=== PATIENT | female | born 1950 | race Caucasian/White ===

== ENCOUNTER → 2017-10-08 | Outpatient (CLI) | payer MEDICARE, BC ==
[~2017-10-08] MED LIST: ALLO300 PO; Aspir 8181 MG PO; CALCAVITD PO; CEPH500 PO; CRANBERRY PLUS1 EAC1 PO; DIGESTIVE PROB1 EACH PO; Daily Multiple1 EACH; FLAX PO; FLUSAL2505 INH; FURO20 PO; GABA800 PO; HYDACE10B PO; IRON236 MG PO; LEVLIO2; MAGNESIUM400 MG PO; OMEG1CAP30; OMEGA 3-6-9 11200 MG; PANT40 PO; POTA10T PO; Percocet 5-3251 EACH PO; Pyridium100 MG PO; Synthroid50 MCG PO; TIZANIDINE HCL4 MG PO; VITAMIN D32000 UNIT PO; ZESTRIL40 MG PO
== END | disposition home or self-care (01) ==
LOC: LAB EV 17:06
DX: N39.0 Urinary tract infection, site not specified (principal)
CPT/HCPCS: 87077; 87086; 87186

== ENCOUNTER → 2017-12-12 | Outpatient (CLI) | payer MEDICARE, BC ==
[2017-12-12 17:17] LABS: Percent Saturation 26.2 % (15.0-50.0)
== END | disposition home or self-care (01) ==
LOC: LAB 11:35 → LAB SHORT 11:35
PROVIDERS: Internal Medicine Hematology & Oncology
DX: D50.9 Iron deficiency anemia, unspecified (principal)
CPT/HCPCS: 82728; 83540; 83550

== ENCOUNTER → 2017-12-17 | Outpatient (CLI) | payer MEDICARE, BC | LOC: LAB SHORT 13:14 → LAB EV 13:14 | DX: N39.0 Urinary tract infection, site not specified (principal) | CPT/HCPCS: 87077; 87086; 87186 ==

== ENCOUNTER → 2018-02-17 | Outpatient (CLI) | payer MEDICARE, BC ==
[2018-02-17 19:22] LABS: Albumin, Blood 4.1 g/dL (3.4-5.0); Albumin/Globulin Ratio 1.5 (0.8-1.8); Bilirubin, Total 0.6 mg/dL (0.1-1.0); Bun/Creatinine Ratio 27.2 (12.0-20.0); Calcium, Blood 9.5 mg/dL (8.5-10.1); Creatinine, Blood 1.03 mg/dL (0.40-1.00); Globulin, Blood 2.7 g/dL (2.2-4.0); Percent Saturation 18.6 % (15.0-50.0); Potassium, Blood 4.7 mmol/L (3.5-5.5); Total Protein, Blood 6.8 g/dL (6.4-8.2)
== END | disposition home or self-care (01) ==
LOC: LAB 16:38 → LAB SHORT 16:38
PROVIDERS: Internal Medicine Hematology & Oncology
DX: D50.9 Iron deficiency anemia, unspecified (principal); G62.9 Polyneuropathy, unspecified; D51.9 Vitamin B12 deficiency anemia, unspecified
CPT/HCPCS: 80053; 82607; 82728; 82746; 83540; 83550

== ENCOUNTER → 2018-12-09 | Outpatient (CLI) | payer MEDICARE, BC | END | disposition home or self-care (01) | LOC: LAB EV 10:07 → LAB SHORT 10:07 | DX: N39.0 Urinary tract infection, site not specified (principal) | CPT/HCPCS: 87077; 87086; 87186 ==

== ENCOUNTER → 2019-01-18 | Outpatient (CLI) | payer MEDICARE, BC ==
[~2019-01-18] MED LIST changes: +ACET325 PO; +ALBU2.5V5 INH; -CALCAVITD PO; +CALCIUM 600 +1 EA11 PO; -Daily Multiple1 EACH; +Daily Multiple1 EACH PO; +ERTAPENEM1 GM IV; +FEMRING VG; +FURO40 PO; +Flonase 0.05% N16 GM; -HYDACE10B PO; +LORA1 SL; +Norco 10-325 T1 EACH PO; +PREG100 PO; +SPIRIVA RESPIMAT4 GM INH; -TIZANIDINE HCL4 MG PO; +WIXELA 500-501 EACH INH; +Zanaflex4 MG PO
== END | disposition home or self-care (01) ==
LOC: LAB SHORT 12:52 → LAB 12:52
DX: R30.0 Dysuria (principal)
CPT/HCPCS: 87077; 87086; 87186

== ENCOUNTER → 2019-03-01 | Outpatient (CLI) | payer MEDICARE, BC | END | disposition home or self-care (01) | LOC: LAB SHORT 13:56 → LAB 13:56 | DX: R30.0 Dysuria (principal) | CPT/HCPCS: 36415; 87086 ==

== ENCOUNTER 2019-04-01 15:53 | Emergency (ER) | payer MEDICARE, BC ==
[~2019-04-01] VITALS: Ht 177.8 cm; Wt 131.5 kg
[~2019-04-01 15:53] MED LIST changes: -ACET325 PO; -ALBU2.5V5 INH; -ERTAPENEM1 GM IV; -FEMRING VG; -FURO40 PO; -Flonase 0.05% N16 GM; -LORA1 SL; -PREG100 PO; -SPIRIVA RESPIMAT4 GM INH; -WIXELA 500-501 EACH INH
[2019-04-01] MEDS ORDERED: FEMRING VG (16:07)
[2019-04-01] MEDS ORDERED: PREG100 PO (16:08)
[2019-04-01] MEDS ORDERED: FURO40 PO (16:08)
[2019-04-01 16:15] LABS: BASOPHILS ABSOLUTE AUTO 0.04 K/mm3 (0.00-0.23); BASOPHILS PERCENT AUTO 0 % (0-2); EOSINOPHILS ABSOLUTE AUTO 0.13 K/mm3 (0.00-0.68); EOSINOPHILS PERCENT AUTO 1 % (0-6); Hematocrit 39.2 % (33.0-51.0); Hemoglobin 12.7 g/dL (11.5-16.0); IMMATURE GRAN ABSOLUTE AUTO 0.05 K/mm3 (0.00-0.10); IMMATURE GRAN PERCENT AUTO 1 % (0-1); LYMPHOCYTES PERCENT AUTO 16 % (21-46); MONOCYTES PERCENT AUTO 7 % (4-13); Mean Corpuscular HGB 31.8 pg (26.0-34.0); Mean Corpuscular HGB Conc 32.4 g/dL (31.5-36.5); Mean Corpuscular Volume 98 fL (80-100); Mean Platelet Volume 9.3 fL (9.1-12.4); NEUTROPHILS ABSOLUTE AUTO 7.73 K/mm3 (1.96-9.15); NEUTROPHILS PERCENT AUTO 75 % (41-73); Platelet Count 244 K/mm3 (150-400); RDW Coefficient Variation 14.2 % (11.7-14.2); RDW Standard Deviation 51.5 fL (35.1-46.3); Red Blood Cell Count 3.99 M/mm3 (3.80-5.20); White Blood Cell Count 10.35 K/mm3 (4.00-11.30)
[2019-04-01 16:36] LABS: Alanine Aminotransfer (ALT/SGP 39 U/L (12-78); Albumin, Blood 3.9 g/dL (3.4-5.0); Alk Phos 67 U/L (50-136); Anion Gap 6 mmol/L (6-16); Aspartate Aminotrans (AST/SGOT 30 U/L (12-37); Bilirubin, Total 0.6 mg/dL (0.1-1.0); Blood Urea Nitrogen 28 mg/dL (8-24); Bun/Creatinine Ratio 26.2 (12.0-20.0); CO2, Blood 26 mmol/L (21-32); Calcium, Blood 9.4 mg/dL (8.5-10.1); Chloride, Blood 102 mmol/L (98-108); Creatinine, Blood 1.07 mg/dL (0.40-1.00); Glomerular Filtration Rate 54 (60-); Glucose, Blood 99 mg/dL (70-99); Potassium, Blood 4.3 mmol/L (3.5-5.5); Sodium, Blood 134 mmol/L (136-145); Total Protein, Blood 7.9 g/dL (6.4-8.2); Troponin I <0.015 ng/mL (0.000-0.040)
[2019-04-01] MEDS ORDERED: LORA1 SL (20:27)
[2019-04-21] MEDS ORDERED: WIXELA 500-501 EACH INH (20:26)
[2019-04-21] MEDS ORDERED: SPIRIVA RESPIMAT4 GM INH (20:29)
[2019-04-21] MEDS ORDERED: Flonase 0.05% N16 GM (20:30)
[2019-04-23] MEDS ORDERED: ACET325 PO (14:19)
[2019-04-23] MEDS ORDERED: ALBU2.5V5 INH (14:21)
[2019-04-23] MEDS ORDERED: ERTAPENEM1 GM IV (14:24)
== END 2019-04-01 20:50 | disposition home or self-care (01) ==
LOC: ER 15:53
PROVIDERS: Physician Assistant
DX: R07.2 Precordial pain (principal); J40 Bronchitis, not specified as acute or chronic; K21.9 Gastro-esophageal reflux disease without esophagitis; Z88.2 Allergy status to sulfonamides; Z79.899 Other long term (current) drug therapy; Z87.891 Personal history of nicotine dependence
CPT/HCPCS: 36415; 71046; 80053; 83690; 83880; 84484; 85025; 93005; 93010; 94640; 99285-25

== ENCOUNTER 2019-04-21 14:33 | Inpatient (IN) | payer MEDICARE, BC ==
[~2019-04-21] VITALS: Ht 177.8 cm; Wt 132.2 kg
[~2019-04-21 14:33] MED LIST changes: +FEMRING VG; +FURO40 PO; +LORA1 SL; +PREG100 PO
[2019-04-21 16:17] LABS: Source, Urine Clean Catch
[2019-04-21 16:27] LABS: Bilirubin, Urine Neg (Neg); Blood, Urine 1+ (Neg); Glucose Qualitative, Urine Neg (Neg); Ketones, Urine 1+ (Neg); Leukocyte Esterase, Urine 3+ (Neg); Nitrite, Urine Pos (Neg); Protein, Urine 2+ (Neg); Specific Gravity, Urine 1.015 (1.003-1.022); Urobilinogen, Urine NORM (Normal)
[2019-04-21 16:28] LABS: Appearance, Urine Hazy (Clear); Color, Urine Yellow (P-Yellow)
[2019-04-21 16:40] LABS: Red Blood Cells, Urine Rare /hpf (0-2); Squamous Epithelial Cells Many /hpf (Few); White Blood Cells, Urine 25-50 /hpf (0-5)
[2019-04-21 16:41] LABS: Bacteria Many /hpf
[2019-04-21] MEDS ORDERED: WIXELA 500-501 EACH INH ×2 (20:26)
[2019-04-21] MEDS ORDERED: SPIRIVA RESPIMAT4 GM INH ×2 (20:29)
[2019-04-21] MEDS ORDERED: Flonase 0.05% N16 GM ×2 (20:30)
--- NOTE | 2019-04-22 04:46 | NUR ---
SHIFT SUMMARY- PT. ARRIVED FROM ED VIA STRETCHER INTO ROOM. A&OX3, INDEPENDENT IN ROOM. C/O CHRONIC BACK PAIN. NOTIFIED PHYSICIAN, RECEIVED 1X ORDER FOR PAIN MED. RESTED WELL T/O THE NIGHT. NO APPARENT DISTRESS NOTED. IV INFUSING. CALL LIGHT WITHIN REACH AND SIDE RAILS UP X2. WILL CONT TO MONITOR.
--- NOTE | 2019-04-22 17:36 | NUR ---
SHIFT SUMMARY NO ACUTE CONCERNS. PATIENT IS ALERT AND ORIENTED INDEPENDENT IN THE ROOM. PATIENT PLANS ON GOING HOME TOMORROW AND THE DOCTOR IS AWARE. CURRENTLY THEY ARE AWAITING RESULTS OF CULTURES FROM URINE AND SPUTUM.
--- NOTE | 2019-04-23 05:06 | NUR ---
SHIFT SUMMARY- NO ACUTE EVENTS OVERNIGHT. PT. RESTED COMFORTABLY T/O THE SHIFT, NO APPARENT DISTRESS NOTED. PT. ON ORAL ABX'S. ORDER FOR NO IV ACCESS OBTAINED. PT. ANTICIPATING D/C TODAY. CALL LIGHT WITHIN REACH AND SIDE RAILS UP X2. WILL CONT TO MONITOR.
[2019-04-23 05:18] LABS: Anion Gap 2 mmol/L (6-16); Blood Urea Nitrogen 16 mg/dL (8-24); Bun/Creatinine Ratio 16.6 (12.0-20.0); CO2, Blood 29 mmol/L (21-32); Calcium, Blood 9.1 mg/dL (8.5-10.1); Chloride, Blood 109 mmol/L (98-108); Creatinine, Blood 0.96 mg/dL (0.40-1.00); Glomerular Filtration Rate >60 (60-); Glucose, Blood 107 mg/dL (70-99); Potassium, Blood 4.4 mmol/L (3.5-5.5); Sodium, Blood 140 mmol/L (136-145)
--- NOTE | 2019-04-23 08:30 | NUR ---
PT PLEASANT COOP A.O. STATES THINKING GOING HOME TODAY. STATES SOME PAIN IN LEGS. MED PER EMAR. H/R REG, YULIET NOTED. NO TELE. PT REFUSED LISINOPRIL. STATES WOULD HOLD FOR BP <120. LUNGS CLEAR, RESP EASY, UNLABORED. ON R.A, BT HYPOACTIVE. LAST BM TUESDAY. DINESH JUÁREZ REQUESTED AND GIVEN. SHE STATES WILL TELL DR TO START [place] AGAIN WHEN IN. VOIDS PER BATHROOM. INDEPENDANT ON ROOM. BED IN LOW POSITION, CALL LITE IN REACH, CALLS APPROP
[2019-04-23] MEDS ORDERED: ACET325 PO ×2 (14:19)
[2019-04-23] MEDS ORDERED: ALBU2.5V5 INH ×2 (14:21)
[2019-04-23] MEDS ORDERED: ERTAPENEM1 GM IV ×2 (14:24)
--- NOTE | 2019-04-23 14:48 | NUR ---
PATIENT GIVEN VERBAL AND WRITTEN DISCHARGE INSTRUCTIONS. MIDLINE IN PLACE. ALL QUESTIONS ANSWERED. PATIENT TO RETURN TO THE [facility] TOMORROW FOR FIRST D/C INFUSION. PATIENT FINISHING UP TO D/C HOME WITH AT THIS TIME.
--- NOTE | 2019-04-23 15:20 | NUR ---
PT WHEELED OUT DOOR BY AIDE AT [id number]
== END 2019-04-23 15:12 | disposition home or self-care (01) | DRG 872 ==
LOC: ER 14:33 → MEDS 18:49 → ER 18:49 → MEDS 20:56
PROVIDERS: Internal Medicine; Physician Assistant; ADMIT Internal Medicine
DX: A41.89 Other specified sepsis (principal); N17.9 Acute kidney failure, unspecified; N39.0 Urinary tract infection, site not specified; Z68.41 Body mass index [BMI] 40.0-44.9, adult; J44.1 Chronic obstructive pulmonary disease with (acute) exacerbation; R65.20 Severe sepsis without septic shock; I12.9 Hypertensive chronic kidney disease with stage 1 through stage 4 chronic kidney disease, or unspecified chronic kidney disease; N18.3 Chronic kidney disease, stage 3 (moderate); E66.01 Morbid (severe) obesity due to excess calories; Z88.2 Allergy status to sulfonamides; Z87.891 Personal history of nicotine dependence
CPT/HCPCS: 36415; 71046; 80048; 80053; 81001; 82550; 83605; 84484; 85025; 87070; 87077; 87086; 87186; 87205; 93005; 93010; 94640; 94760; 96360; 96361; 96372; 96374; 99285-25; A9270; G0378; J0696; J1650; J2185; J2405; J7030; J7120

== ENCOUNTER 2019-04-24 00:03 | Day surgery (SDC) | payer MEDICARE, BC ==
[~2019-04-24 00:03] MED LIST changes: +ACET325 PO; +ALBU2.5V5 INH; +ERTAPENEM1 GM IV; +Flonase 0.05% N16 GM; +SPIRIVA RESPIMAT4 GM INH; +WIXELA 500-501 EACH INH
== END 2019-04-24 09:32 | disposition home or self-care (01) ==
LOC: ATC 00:03
DX: N39.0 Urinary tract infection, site not specified (principal); J44.9 Chronic obstructive pulmonary disease, unspecified; I10 Essential (primary) hypertension; Z16.12 Extended spectrum beta lactamase (ESBL) resistance; Z87.891 Personal history of nicotine dependence; Z88.2 Allergy status to sulfonamides; Z79.899 Other long term (current) drug therapy
CPT/HCPCS: 96365; J1335

== ENCOUNTER 2019-04-25 00:03 | Day surgery (SDC) | payer MEDICARE, BC | END 2019-04-25 10:00 | disposition home or self-care (01) | LOC: ATC 00:03 | DX: N39.0 Urinary tract infection, site not specified (principal); J44.9 Chronic obstructive pulmonary disease, unspecified; I10 Essential (primary) hypertension; Z87.891 Personal history of nicotine dependence; Z16.12 Extended spectrum beta lactamase (ESBL) resistance; Z88.2 Allergy status to sulfonamides; Z79.899 Other long term (current) drug therapy | CPT/HCPCS: 96365; J1335 ==

== ENCOUNTER 2019-04-26 00:03 | Day surgery (SDC) | payer MEDICARE, BC | END 2019-04-26 10:13 | disposition home or self-care (01) | LOC: ATC 00:03 | DX: N39.0 Urinary tract infection, site not specified (principal); Z16.12 Extended spectrum beta lactamase (ESBL) resistance; I10 Essential (primary) hypertension; J44.9 Chronic obstructive pulmonary disease, unspecified; Z88.2 Allergy status to sulfonamides; Z87.891 Personal history of nicotine dependence; Z79.899 Other long term (current) drug therapy | CPT/HCPCS: 96365; J1335 ==

== ENCOUNTER 2019-04-27 01:08 | Day surgery (SDC) | payer MEDICARE, BC | END 2019-04-27 11:28 | disposition home or self-care (01) | LOC: ATC 01:08 | DX: N39.0 Urinary tract infection, site not specified (principal); Z16.12 Extended spectrum beta lactamase (ESBL) resistance; I10 Essential (primary) hypertension; J44.9 Chronic obstructive pulmonary disease, unspecified; Z88.2 Allergy status to sulfonamides; Z79.899 Other long term (current) drug therapy; Z87.891 Personal history of nicotine dependence | CPT/HCPCS: 96365; J1335 ==

== ENCOUNTER 2019-04-28 09:22 | Day surgery (SDC) | payer MEDICARE, BC | END 2019-04-28 09:58 | disposition home or self-care (01) | LOC: ATC 09:22 | DX: N39.0 Urinary tract infection, site not specified (principal); Z16.12 Extended spectrum beta lactamase (ESBL) resistance; I10 Essential (primary) hypertension; J44.9 Chronic obstructive pulmonary disease, unspecified; Z88.2 Allergy status to sulfonamides; Z79.51 Long term (current) use of inhaled steroids; Z79.899 Other long term (current) drug therapy | CPT/HCPCS: 96365; J1335 ==

== ENCOUNTER 2019-04-29 00:29 | Day surgery (SDC) | payer MEDICARE, BC | END 2019-04-29 09:57 | disposition home or self-care (01) | LOC: ATC 00:29 | DX: N39.0 Urinary tract infection, site not specified (principal); I10 Essential (primary) hypertension; J44.1 Chronic obstructive pulmonary disease with (acute) exacerbation; Z16.12 Extended spectrum beta lactamase (ESBL) resistance; Z87.891 Personal history of nicotine dependence; Z79.899 Other long term (current) drug therapy | CPT/HCPCS: 96365; J1335 ==

== ENCOUNTER 2019-04-30 00:12 | Day surgery (SDC) | payer MEDICARE, BC | END 2019-04-30 10:10 | disposition home or self-care (01) | LOC: ATC 00:12 | DX: N39.0 Urinary tract infection, site not specified (principal); I10 Essential (primary) hypertension; J44.9 Chronic obstructive pulmonary disease, unspecified; Z16.12 Extended spectrum beta lactamase (ESBL) resistance; Z88.2 Allergy status to sulfonamides; Z79.899 Other long term (current) drug therapy; Z87.891 Personal history of nicotine dependence | CPT/HCPCS: 96365; J1335 ==

== ENCOUNTER → 2019-05-01 | Outpatient (CLI) | payer MEDICARE, BC | END | disposition home or self-care (01) | LOC: LAB SHORT 15:38 → LAB 15:38 | DX: N94.89 Other specified conditions associated with female genital organs and menstrual cycle (principal); R19.09 Other intra-abdominal and pelvic swelling, mass and lump | CPT/HCPCS: 86304 ==

== ENCOUNTER → 2019-05-08 | Outpatient (CLI) | payer MEDICARE, BC ==
[2019-05-08 14:19] LABS: Source, Urine Clean Catch
[2019-05-08 18:53] LABS: Bilirubin, Urine Neg (Neg); Blood, Urine 1+ (Neg); Glucose Qualitative, Urine Neg (Neg); Ketones, Urine Neg (Neg); Leukocyte Esterase, Urine 2+ (Neg); Nitrite, Urine Neg (Neg); Protein, Urine Neg (Neg); Urobilinogen, Urine NORM (Normal)
[2019-05-08 19:09] LABS: Appearance, Urine Clear (Clear); Color, Urine Yellow (P-Yellow)
[2019-05-08 19:10] LABS: Bacteria Mod /hpf; Squamous Epithelial Cells Few /hpf (Few); White Blood Cells, Urine TNTC /hpf (0-5)
== END | disposition home or self-care (01) ==
LOC: LAB 14:18 → LAB SHORT 14:18
PROVIDERS: Nurse Practitioner Family
DX: N39.0 Urinary tract infection, site not specified (principal)
CPT/HCPCS: 81001; 87077; 87086; 87186

== ENCOUNTER → 2019-06-04 | Outpatient (CLI) | payer MEDICARE, BC ==
[~2019-06-04] MED LIST changes: +D MANNOS PO; +Estrace Vagin42.5 GM VAG; +PROBIOTIC1 EAC1 PO; +VITAMIN B122500 MCG PO
[2019-06-04 19:54] LABS: Appearance, Urine Clear (Clear); Blood, Urine 1+ (Neg); Glucose Qualitative, Urine Neg (Neg); Ketones, Urine Neg (Neg); Leukocyte Esterase, Urine 3+ (Neg); Nitrite, Urine Pos (Neg); Protein, Urine 1+ (Neg); Urobilinogen, Urine 2+ (Normal)
[2019-06-04 20:06] LABS: Bilirubin, Urine 2+ (Neg); Color, Urine Orange (P-Yellow)
[2019-06-04 20:07] LABS: Bacteria Many /hpf; Red Blood Cells, Urine 0-2 /hpf (0-2); Squamous Epithelial Cells Few /hpf (Few); White Blood Cells, Urine 25-50 /hpf (0-5)
== END ==
LOC: LAB 17:00 → LAB SHORT 17:00 → LAB FUT 06-04 17:15
PROVIDERS: Physician Assistant
DX: N39.0 Urinary tract infection, site not specified (principal); N95.2 Postmenopausal atrophic vaginitis; Z87.440 Personal history of urinary (tract) infections
CPT/HCPCS: 81001

== ENCOUNTER 2019-06-07 08:28 | Inpatient (IN) | payer MEDICARE, BC ==
[~2019-06-07] VITALS: Ht 172.7 cm; Wt 135.0 kg
--- NOTE | 2019-06-07 09:40 | NUR ---
Ambulatory in Day Surgery History, Chart, Medications and Allergies reviewed before start of procedure.Patient confirms NPO status and agrees with scheduled surgery. Lungs clear T/O to Auscultation. Patient reports completing Chlorhexadine shower X2 prior to admission to hospital.Surgical site prepped with 2% Chlorhexidine cloth wipe. Patient States Post-Procedure ride home has been arranged.
--- NOTE | 2019-06-07 11:30 | NUR ---
06/07/19 1130 Jose Carrion CONVERTED TO OPEN APPROACH AT 1052.
[2019-06-07 18:19] LABS: Source, Urine Catheter
[2019-06-07 18:34] LABS: Blood, Urine 5+ (Neg); Glucose Qualitative, Urine Neg (Neg); Ketones, Urine Neg (Neg); Leukocyte Esterase, Urine 3+ (Neg); Nitrite, Urine Pos (Neg); Protein, Urine 3+ (Neg); Urobilinogen, Urine 2+ (Normal)
[2019-06-07 19:04] LABS: Appearance, Urine Cloudy (Clear); Bilirubin, Urine 2+ (Neg); Color, Urine Orange (P-Yellow)
[2019-06-07 19:06] LABS: Bacteria Many /hpf; Squamous Epithelial Cells Few /hpf (Few); White Blood Cells, Urine TNTC /hpf (0-5)
--- NOTE | 2019-06-07 20:21 | NUR ---
POST OP: REPORT RECIEVED FROM ESPERANZA GLASS DESIGNER AT 1430. PT TO UNIT AT 1440. UPON ASSESSMENT VSS, A/O. REPORTS SOME PAIN, ENCOURAGED TO USE IT HELP DESK ASSOCIATE BUTTON. SURGICAL SITES WNL, SLIGHT VAGINAL BLEED NOTED. PT ABLE TO TURN IN BED. DANIELLE IS DRAINING. PT DENIED NEED FOR FLU VAC. FAMILY AT BEDSIDE. WILL CTM
--- NOTE | 2019-06-07 20:24 | NUR ---
SUMMARY: NO ACUTE CHANGE SINCE ADMIT. VSS. PT REPORTS COMMUNITY AFFAIRS DIRECTOR MANAGING PAIN WELL, TORADOL ALSO GIVEN. SLIGHT WHEEZE NOTED UPON LUNG ASCULTATION, THIS RN ORDERED BD PROTOCOL, AND RT SAW PT TONIGHT. UA COLLECTED, NO CONCERNS AT THIS TIME. REPORT GIVEN TO JOSE RN'S.
--- NOTE | 2019-06-08 04:14 | NUR ---
SHIFT SUMMARY PT A&OX4 WITH VSS T/O SHIFT. ABD DRESSING 2X APPEARS C/D/I WITH NO DRAINAGE NOTED. ABD APPEARS DISTENDED; DISCUSSED IMPORTANCE AMBULATION. DENIES PASSING FLATUS OR HAVING ANY N/V. CURRENTLY TOLERATING CL DIET, PLAN TO ADVANCE TOLERATED. PAIN MANAGED WITH FREQUENT REPOSITIONING AND PER EMAR.
[2019-06-08 05:29] LABS: BASOPHILS ABSOLUTE AUTO 0.03 K/mm3 (0.00-0.23); BASOPHILS PERCENT AUTO 0 % (0-2); EOSINOPHILS PERCENT AUTO 1 % (0-6); Hematocrit 36.9 % (33.0-51.0); Hemoglobin 11.3 g/dL (11.5-16.0); IMMATURE GRAN ABSOLUTE AUTO 0.03 K/mm3 (0.00-0.10); IMMATURE GRAN PERCENT AUTO 0 % (0-1); LYMPHOCYTES ABSOLUTE AUTO 1.47 K/mm3 (0.84-5.20); LYMPHOCYTES PERCENT AUTO 15 % (21-46); MONOCYTES PERCENT AUTO 8 % (4-13); Mean Corpuscular HGB 31.5 pg (26.0-34.0); Mean Corpuscular HGB Conc 30.6 g/dL (31.5-36.5); Mean Corpuscular Volume 103 fL (80-100); Mean Platelet Volume 10.3 fL (9.1-12.4); NEUTROPHILS ABSOLUTE AUTO 7.12 K/mm3 (1.96-9.15); NEUTROPHILS PERCENT AUTO 75 % (41-73); Platelet Count 271 K/mm3 (150-400); RDW Standard Deviation 56.5 fL (35.1-46.3); Red Blood Cell Count 3.59 M/mm3 (3.80-5.20); White Blood Cell Count 9.55 K/mm3 (4.00-11.30)
--- NOTE | 2019-06-08 18:05 | NUR ---
SUMMARY PAIN WELL CONTROLLED WITH PO PAIN MEDS. PATIENT REPORTS "GAS PAINS" PATIENT OOB TO CHAIR AND AMBULATING IN BELL. PATIENT STATES SHE IS NOT PASSING FLATUS. UP TO BATHROOM TO VOID CLEAR DARK YELLOW URINE. ABD DRESSINGS DRY AND INTACT
--- NOTE | 2019-06-09 06:09 | NUR ---
SHIFT SUMMARY: IKE IS POD2 BILATERAL SALPINGOOPHORECTOMY CONVERTED TO OPEN PROCEDURE. DRESSINGS WITH SCANT DRAINAGE ON MIDDLE DRESSING, OTHERS C,D&I. IV PATENT. TOLERATING PO INTAKE WELL, NO N/V THIS SHIFT. SHE REPORTS GOOD PAIN CONTROL WITH THE USE OF PERCOCET AND TORADOL. SHE IS INDEPDENT IN THE ROOM. SHE DENIES ANY DIFFICULTIES WITH URINATION. ENCOURAGED TO EAT PRIOR TO TAKING NARCOTIC PAIN MEDICATION. ABLE TO MAKE HER NEEDS KNOWN. VSS.
[2019-06-09] MEDS ORDERED: IBUP800 PO (13:55)
--- NOTE | 2019-06-09 14:48 | NUR ---
DISCHARGE SUMMARY PT A&OX4, VSS, LEFT FLOOR VIA WC WITH MANAGER OF COMPLIANCE, TO GO HOME WITH AND DAUGHTER, WITH ALL PERSONAL POSSESSIONS INCLUDING DISCHARGE PACKET. DC INSTRUCTIONS PROVIDED. PT REP UNDERSTANDING THOSE INSTRUCTIONS INCLUDING LEAVE STERISTRIPS IN PLACE - WILL COME OFF ON THEIR OWN IN 7-10 DAYS, FU WITH DR IN 2 WKS, OK TO SHOWER, NO TUB BATHS/JACUZZI, PELVIC REST, NO LIFTING > 10 LBS. IV DC'D.
== END 2019-06-09 14:19 | disposition home or self-care (01) | DRG 743 ==
LOC: ORSCMMR 08:28 → ORD 09:30 → SURS 12:08 → ORSCMMR 12:08 → SURS 14:22
PROVIDERS: ADMIT Obstetrics & Gynecology
PROC: 0DN80ZZ Release Small Intestine, Open Approach (ICD-10-PCS; 2019-06-07)
PROC: 0UT20ZZ Resection of Bilateral Ovaries, Open Approach (ICD-10-PCS; principal; 2019-06-07 09:30)
PROC: 0UT70ZZ Resection of Bilateral Fallopian Tubes, Open Approach (ICD-10-PCS; 2019-06-07 09:30)
PROC: 0DNU0ZZ Release Omentum, Open Approach (ICD-10-PCS; 2019-06-07 09:30)
DX: N83.8 Other noninflammatory disorders of ovary, fallopian tube and broad ligament (principal); I10 Essential (primary) hypertension; J44.9 Chronic obstructive pulmonary disease, unspecified; M10.9 Gout, unspecified; Z87.891 Personal history of nicotine dependence
CPT/HCPCS: 36415; 81001; 85025; 87077; 87081; 87086; 87186; 88305; 94640; 94760; J0330; J1650; J1885; J2250; J2405; J2704; J2765; J3010; J7030; J7120

== ENCOUNTER → 2019-07-06 | Outpatient (CLI) | payer MEDICARE, BC ==
[~2019-07-06] MED LIST changes: +AMLO5 PO; +IBUP800 PO; +LOSARTAN POTAS100 MG PO; +PROAIR RESPICL90 MCG INH
[2019-07-06 10:52] LABS: Source, Urine Clean Catch
[2019-07-06 13:28] LABS: Bilirubin, Urine Neg (Neg); Blood, Urine Neg (Neg); Glucose Qualitative, Urine Neg (Neg); Ketones, Urine Neg (Neg); Leukocyte Esterase, Urine 2+ (Neg); Nitrite, Urine Pos (Neg); Protein, Urine 1+ (Neg); Urobilinogen, Urine NORM (Normal)
[2019-07-06 13:53] LABS: Appearance, Urine Clear (Clear); Color, Urine Yellow (P-Yellow)
[2019-07-06 14:46] LABS: Bacteria Many /hpf; Red Blood Cells, Urine 0-2 /hpf (0-2); Squamous Epithelial Cells Mod /hpf (Few)
== END | disposition home or self-care (01) ==
LOC: LAB SHORT 10:51 → LAB 10:51
PROVIDERS: Urology
DX: N39.0 Urinary tract infection, site not specified (principal)
CPT/HCPCS: 81001; 87077; 87086; 87186

== ENCOUNTER 2019-07-30 10:36 | Day surgery (SDC) | payer MEDICARE, BC ==
[~2019-07-30] VITALS: Ht 177.8 cm; Wt 138.0 kg
[~2019-07-30 10:36] MED LIST changes: -AMLO5 PO; -LOSARTAN POTAS100 MG PO; -PROAIR RESPICL90 MCG INH
[2019-07-30] MEDS ORDERED: AMLO5 PO (11:41)
[2019-07-30] MEDS ORDERED: LOSARTAN POTAS100 MG PO (11:41)
[2019-07-30] MEDS ORDERED: PROAIR RESPICL90 MCG INH (11:46)
== END 2019-07-30 13:21 | disposition home or self-care (01) ==
LOC: ORSCSDS 10:36
PROVIDERS: Student in an Organized Health Care Education/Training Program
PROC: 0DB48ZX Excision of Esophagogastric Junction, Via Natural or Artificial Opening Endoscopic, Diagnostic (ICD-10-PCS; principal; 2019-07-30 11:45)
PROC: 0DB68ZX Excision of Stomach, Via Natural or Artificial Opening Endoscopic, Diagnostic (ICD-10-PCS; principal; 2019-07-30 11:45)
DX: K21.9 Gastro-esophageal reflux disease without esophagitis (principal); R10.13 Epigastric pain; R13.14 Dysphagia, pharyngoesophageal phase; K44.9 Diaphragmatic hernia without obstruction or gangrene; I10 Essential (primary) hypertension; J44.9 Chronic obstructive pulmonary disease, unspecified; Z87.891 Personal history of nicotine dependence; E66.01 Morbid (severe) obesity due to excess calories; Z68.41 Body mass index [BMI] 40.0-44.9, adult; Z79.899 Other long term (current) drug therapy
CPT/HCPCS: 88305; J2704; J7120

== ENCOUNTER → 2019-08-02 | Outpatient (CLI) | payer MEDICARE, BC ==
[~2019-08-02] MED LIST changes: +AMLO5 PO; +LOSARTAN POTAS100 MG PO; +PROAIR RESPICL90 MCG INH
[2019-08-02 14:07] LABS: Source, Urine Clean Catch
[2019-08-02 18:41] LABS: Bilirubin, Urine Neg (Neg); Blood, Urine Neg (Neg); Glucose Qualitative, Urine Neg (Neg); Ketones, Urine Neg (Neg); Leukocyte Esterase, Urine Neg (Neg); Nitrite, Urine Neg (Neg); Protein, Urine Neg (Neg); Specific Gravity, Urine 1.005 (1.003-1.022); Urobilinogen, Urine NORM (Normal)
[2019-08-02 18:59] LABS: Appearance, Urine Clear (Clear); Color, Urine Pale Yellow (P-Yellow)
== END | disposition home or self-care (01) ==
LOC: LAB SHORT 13:44 → LAB 13:44
PROVIDERS: Physician Assistant
DX: N39.0 Urinary tract infection, site not specified (principal)
CPT/HCPCS: 81003; 87077; 87086; 87186

== ENCOUNTER → 2019-09-28 | Outpatient (CLI) | payer MEDICARE, BC ==
[2019-09-28 16:11] LABS: Source, Urine Clean Catch
[2019-09-28 17:16] LABS: Bilirubin, Urine Neg (Neg); Blood, Urine Neg (Neg); Glucose Qualitative, Urine Neg (Neg); Ketones, Urine Neg (Neg); Leukocyte Esterase, Urine 1+ (Neg); Nitrite, Urine Neg (Neg); Protein, Urine Neg (Neg); Specific Gravity, Urine 1.005 (1.003-1.022); Urobilinogen, Urine NORM (Normal)
[2019-09-28 17:24] LABS: Appearance, Urine Clear (Clear); Color, Urine Pale Yellow (P-Yellow)
[2019-09-28 17:25] LABS: Bacteria Rare /hpf; Red Blood Cells, Urine 0-2 /hpf (0-2); Squamous Epithelial Cells Few /hpf (Few)
== END | disposition home or self-care (01) ==
LOC: OLS 16:08 → LAB SHORT 16:08 → EDSTATUS 09-03 15:50 → LAB FUT 09-03 15:50
PROVIDERS: Physician Assistant
DX: N39.0 Urinary tract infection, site not specified (principal)
CPT/HCPCS: 81001; 87086

== ENCOUNTER → 2019-11-26 | Outpatient (CLI) | payer MEDICARE, BC ==
[2019-11-26 15:13] LABS: Source, Urine Clean Catch
[2019-11-26 17:33] LABS: Bilirubin, Urine Neg (Neg); Blood, Urine Neg (Neg); Glucose Qualitative, Urine Neg (Neg); Ketones, Urine Neg (Neg); Leukocyte Esterase, Urine Neg (Neg); Nitrite, Urine Neg (Neg); Protein, Urine Neg (Neg); Specific Gravity, Urine 1.005 (1.003-1.022); Urobilinogen, Urine NORM (Normal)
[2019-11-26 17:37] LABS: Appearance, Urine Clear (Clear); Color, Urine Yellow (P-Yellow)
== END | disposition home or self-care (01) ==
LOC: LAB SHORT 15:12 → LAB 15:12
PROVIDERS: Physician Assistant
DX: N39.0 Urinary tract infection, site not specified (principal)
CPT/HCPCS: 81003

== ENCOUNTER → 2019-12-19 | Outpatient (CLI) | payer MEDICARE, BC ==
[2019-12-19 15:29] LABS: Source, Urine Clean Catch
[2019-12-19 18:27] LABS: Bilirubin, Urine Neg (Neg); Blood, Urine Neg (Neg); Glucose Qualitative, Urine Neg (Neg); Ketones, Urine Neg (Neg); Leukocyte Esterase, Urine 2+ (Neg); Nitrite, Urine Neg (Neg); Protein, Urine Neg (Neg); Urobilinogen, Urine NORM (Normal)
[2019-12-19 18:57] LABS: Appearance, Urine Clear (Clear); Color, Urine Yellow (P-Yellow)
[2019-12-19 18:58] LABS: Bacteria Not Seen /hpf; Red Blood Cells, Urine Not Seen /hpf (0-2); Squamous Epithelial Cells Rare /hpf (Few); White Blood Cells, Urine 25-50 /hpf (0-5)
== END | disposition home or self-care (01) ==
LOC: LAB 15:24 → LAB SHORT 15:24
PROVIDERS: Physician Assistant
DX: N39.0 Urinary tract infection, site not specified (principal)
CPT/HCPCS: 81001

== ENCOUNTER 2020-01-03 08:13 | Day surgery (SDC) | payer MEDICARE, BC ==
--- NOTE | 2020-01-03 11:56 | NUR ---
PT VERBALIZED UNDERSTANDING OF WRITTEN AND VERBAL D/C INST. AMB TO BATHROOM /S DIFFICULTY. IV REMOVED. PT TAKEN OUT OF [facility]ENTER VIA W/C.
== END 2020-01-03 23:23 | disposition home or self-care (01) ==
LOC: MHTC 08:13
DX: I35.0 Nonrheumatic aortic (valve) stenosis (principal); J45.909 Unspecified asthma, uncomplicated; I10 Essential (primary) hypertension; E03.9 Hypothyroidism, unspecified; Z79.899 Other long term (current) drug therapy; Z87.891 Personal history of nicotine dependence; Z88.2 Allergy status to sulfonamides; Z88.8 Allergy status to other drugs, medicaments and biological substances
CPT/HCPCS: 93308; 93321; 93325; 99152; C8925; J2250; J3010; J7030

== ENCOUNTER → 2020-01-09 | Outpatient (CLI) | payer MEDICARE, BC | END | disposition home or self-care (01) | LOC: LAB SHORT 09:36 → PLD 09:36 | DX: D22.5 Melanocytic nevi of trunk (principal) | CPT/HCPCS: 88305 ==

== ENCOUNTER → 2020-04-14 | Outpatient (CLI) | payer MEDICARE, BC | END | disposition home or self-care (01) | LOC: LAB 18:00 → LAB SHORT 18:00 | DX: J20.9 Acute bronchitis, unspecified (principal) | CPT/HCPCS: 87070; 87077; 87185; 87205 ==

== ENCOUNTER 2020-05-26 09:48 | Inpatient (IN) | payer MEDICARE, BC, OTHER ==
[~2020-05-26] VITALS: Ht 177.8 cm; Wt 140.8 kg
[2020-05-26 11:34] LABS: BASOPHILS ABSOLUTE AUTO 0.05 K/mm3 (0.00-0.23); BASOPHILS PERCENT AUTO 0 % (0-2); EOSINOPHILS ABSOLUTE AUTO 0.34 K/mm3 (0.00-0.68); EOSINOPHILS PERCENT AUTO 2 % (0-6); Hematocrit 33.2 % (33.0-51.0); Hemoglobin 9.6 g/dL (11.5-16.0); IMMATURE GRAN PERCENT AUTO 1 % (0-1); LYMPHOCYTES PERCENT AUTO 13 % (21-46); MONOCYTES ABSOLUTE AUTO 1.35 K/mm3 (0.16-1.47); MONOCYTES PERCENT AUTO 10 % (4-13); Mean Corpuscular HGB 26.2 pg (26.0-34.0); Mean Corpuscular HGB Conc 28.9 g/dL (31.5-36.5); Mean Corpuscular Volume 91 fL (80-100); Mean Platelet Volume 9.5 fL (9.1-12.4); NEUTROPHILS ABSOLUTE AUTO 10.43 K/mm3 (1.96-9.15); NEUTROPHILS PERCENT AUTO 74 % (41-73); NRBC ABSOLUTE 0.02 K/mm3 (0.00-0.02); NRBC Auto 0.1 /100 WBC (0.0-0.2); Platelet Count 277 K/mm3 (150-400); RDW Coefficient Variation 18.6 % (11.7-14.2); RDW Standard Deviation 61.6 fL (35.1-46.3); Red Blood Cell Count 3.67 M/mm3 (3.80-5.20); White Blood Cell Count 14.17 K/mm3 (4.00-11.30)
[2020-05-26 11:58] LABS: Alanine Aminotransfer (ALT/SGP 36 U/L (12-78); Albumin, Blood 3.3 g/dL (3.4-5.0); Albumin/Globulin Ratio 0.9 (0.8-1.8); Alk Phos 53 U/L (50-136); Anion Gap 6 mmol/L (6-16); Aspartate Aminotrans (AST/SGOT 60 U/L (12-37); Blood Urea Nitrogen 23 mg/dL (8-24); CO2, Blood 28 mmol/L (21-32); Chloride, Blood 106 mmol/L (98-108); Creatinine, Blood 1.44 mg/dL (0.40-1.00); Globulin, Blood 3.8 g/dL (2.2-4.0); Glomerular Filtration Rate 38 (60-); Glucose, Blood 105 mg/dL (70-99); Potassium, Blood 4.9 mmol/L (3.5-5.5); Sodium, Blood 140 mmol/L (136-145); Total Protein, Blood 7.1 g/dL (6.4-8.2); Troponin I <0.015 ng/mL (0.000-0.040)
[2020-05-26] MEDS ORDERED: TORSE20 PO (15:31)
[2020-05-26] MEDS ORDERED: SPIRONOLACTONE25 MG PO (15:31)
[2020-05-26] MEDS ORDERED: ALLO300 PO (15:32)
[2020-05-26] MEDS ORDERED: LYRICA100 MG PO (15:32)
[2020-05-26] MEDS ORDERED: Klor-Con 1010 MEQ PO (15:32)
[2020-05-26] MEDS ORDERED: AMLODIPINE BESYL5 MG PO (15:32)
[2020-05-26] MEDS ORDERED: LOSARTAN POTAS100 M1 PO (15:33)
[2020-05-26] MEDS ORDERED: WIXELA 500-501 EAC1 INH (15:33)
[2020-05-26] MEDS ORDERED: SYNTHROID50 MC1 PO (15:33)
[2020-05-26] MEDS ORDERED: PANTOPRAZOLE SO40 M2 PO (15:34)
[2020-05-26] MEDS ORDERED: SPIRIVA RESPIMAT4 G3 INH (15:34)
--- NOTE | 2020-05-26 18:40 | NUR ---
ARRIVES FROM [facility] ABOUT 1745. C/O SOB X 4 DAYS, HAD APPOINTMENT W/PCP TODAY BUT CAME TO [facility]. COVID 19 NEGATIVE. NORMALLY ON 2-3 LPM OXYGEN IN EVENINGS. HAD FEVER OF 101 AT HOME. LUNGS DIM UPPER LOBES, WHEEZEY LEFT LOWER AND COARSE RT LOWER LOBE. GOT 1 LITER FLUID AND LEVOQUIN IN E.[facility]. EDEMA 3-4 + BLE W/WEEPING RT LOWER LEG. STILL PUTTING IN ORDERS. WILL CHECK FOR FAX FROM PHARM/PCP FOR HOME MED LIST. STEADY GAIT TO BATHROOM. EXTENSSION ADDED TO OXYGEN TUBING TM
[2020-05-26] MEDS ORDERED: Vitamin D2000 UNIT PO (20:58)
--- NOTE | 2020-05-26 21:11 | NUR ---
PT TAKES NORCO 10/325, PO, TID, PRN FOR PAIN AT HOME; PT CURRENTLY HAS NO PAIN MEDS ORDERED; DR GUPTA NOTIFIED WITH ORDERS RECEIVED FOR THIS MEDICATION.
--- NOTE | 2020-05-27 04:46 | NUR ---
SHIFT SUMMARY: 69 Y/O OBESE FEMALE HAD RESTLESS NIGHT AT TIMES ALL SHIFT PATIENT UP AND DOWN TO BATHROOM; PT HAS +3 PITTING EDEMA BILATERAL LOWER EXTREMITIES; CONTACT PRECAUTIONS MAINTAINED FOR ESBL IN URINEP; LUNG SOUNDS ARE DIMINISHED THROUGHOUT WITH OCCASIONAL PRODUCTIVE COUGH SMALL AMOUNT YELLOW PHELGM; C/O CHRONIC BACK PAIN RATED 8/10 WITH NORCO 10/325 MG PO X 1 GIVEN WITH GOOD RELIEF NOTED; BED LOW POSITION WITH CALL LIGHT AT SIDE.
[2020-05-27] MEDS ORDERED: ALPR.5 PO (09:47)
[2020-05-27] MEDS ORDERED: TIZA4 PO (09:50)
[2020-05-27] MEDS ORDERED: WIXELA 500-501 EAC1 INH (09:52)
--- NOTE | 2020-05-27 11:20 | NUR ---
ORDER MED FOR INSOMNIA, SWALLOW EVAL FOR POSSIBLE ASPIRATION AND UA W/CULTURE TO CHECK FOR ESBL.
--- NOTE | 2020-05-27 11:36 | NUR ---
REQUEST COUGH MED FROM --ORDER ROBITUSSIN DM 10 ML Q 4 HOURS PRN
--- NOTE | 2020-05-27 14:38 | NUR ---
PER OK FOR PATIENT TO USE HER OWN BREATHING MED, WIXELA, WHICH OUR PHARMACY DOES NOT HAVE. WILL LET PATIENT KNOW TO BRING IN AND WE CAN HAVE PHARMACY VERIFY.
[2020-05-27 14:43] LABS: Source, Urine Voided
[2020-05-27 14:53] LABS: Appearance, Urine Clear (Clear); Bilirubin, Urine Neg (Neg); Blood, Urine Neg (Neg); Color, Urine Yellow (P-Yellow); Glucose Qualitative, Urine Neg (Neg); Ketones, Urine Neg (Neg); Leukocyte Esterase, Urine Neg (Neg); Nitrite, Urine Neg (Neg); Protein, Urine Neg (Neg); Urobilinogen, Urine NORM (Normal)
--- NOTE | 2020-05-27 16:55 | NUR ---
ALERT. ORIENTED. ONE PERSON STANDBY ASSIST. STEADY GAIT ON OXYGEN. TO BRING IN HOME MED INHALER. PATIENT AWARE MED WILL BE LOCKED OUTSIDE OF ROOM AND WILL ASK FOR IT BACK WHEN DISCHARGED. MEDICATED FOR PAIN WITH GOOD RESULTS. RT LEG STILL WEEPING SLIGHTLY. ABLE TO MAKE NEEDS KNOWN. SPEAKS IN COMPLETE SENTENCES. AWARE HAS SLEEPING AID IF NEEDED. TM
--- NOTE | 2020-05-28 04:52 | NUR ---
SHIFT SUMMARY NO ACUTE CHANGES THIS SHIFT, MEDICATED AT BEDTIME FOR PAIN (4/10 FEET), SLEPT T/O THE NIGHT, TOMAZ ADMIN 1HR BEFORE SOLUMED PER PT'S REQ- THIS WORKED WELL AND PT WAS ABLE TO SLEEP T/O THE NIGHT, SLEEPING AT THIS TIME, CALL LIGHT IN REACH, WILL CONT TO MONITOR UNTIL REPORT GIVEN TO DAY RN.
--- NOTE | 2020-05-28 19:23 | NUR ---
END OF SHIFT SUMMARY: PATIENT UP TO CHAIR, RECLINER AND BED THROUGHOUT THE SHIFT. BROUGHT RECLINER INTO THE ROOM TO ASSIST WITH ELEVATION OF LOWER EXTREMITIES. PATIENT CONTINUES TO HAVE 3+ EDEMA IN BOTH BLE. PATIENT TOLERATED EXTRA DOSE OF LASIX (PER DR. DE PAZ'S ORDERS) WELL. PATIENT REPORTS MINIMAL INCREASE IN SOB WITH ACTIVITY. PATIENT INDEPENDENT IN THE ROOM. PATIENT STEADY ON HER FEET. DISCUSSED FLUTTER VALVE USE. PATIENT REQUESTED BREATHING TREATMENT ONCE THIS AFTERNOON. PATIENT REPORTED THAT HER BREATHING SYMPTOMS RESOLVED. PATIENT'S BROUGHT IN HOME RESPIRATORY MEDICATION. SENT TO PHARMACY AND VERIFIED. PATIENT REPORTS FEELING OVERALL BETTER. PATIENT HAS A GOOD APPETITE. PATIENT IS INCORPORATING GUIDELINES PROVIDED BY SPEECH THERAPIST.
[2020-05-29 04:40] LABS: BASOPHILS ABSOLUTE AUTO 0.01 K/mm3 (0.00-0.23); BASOPHILS PERCENT AUTO 0 % (0-2); EOSINOPHILS PERCENT AUTO 0 % (0-6); Hematocrit 30.6 % (33.0-51.0); IMMATURE GRAN ABSOLUTE AUTO 0.19 K/mm3 (0.00-0.10); IMMATURE GRAN PERCENT AUTO 1 % (0-1); LYMPHOCYTES ABSOLUTE AUTO 0.97 K/mm3 (0.84-5.20); LYMPHOCYTES PERCENT AUTO 7 % (21-46); MONOCYTES ABSOLUTE AUTO 0.37 K/mm3 (0.16-1.47); MONOCYTES PERCENT AUTO 3 % (4-13); Mean Corpuscular HGB Conc 29.4 g/dL (31.5-36.5); Mean Corpuscular Volume 88 fL (80-100); NEUTROPHILS ABSOLUTE AUTO 12.91 K/mm3 (1.96-9.15); NEUTROPHILS PERCENT AUTO 89 % (41-73); Platelet Count 274 K/mm3 (150-400); RDW Coefficient Variation 17.8 % (11.7-14.2); RDW Standard Deviation 56.6 fL (35.1-46.3); Red Blood Cell Count 3.46 M/mm3 (3.80-5.20); White Blood Cell Count 14.45 K/mm3 (4.00-11.30)
[2020-05-29 05:06] LABS: Calcium, Blood 8.9 mg/dL (8.5-10.1); Creatinine, Blood 1.78 mg/dL (0.40-1.00); Potassium, Blood 4.4 mmol/L (3.5-5.5)
--- NOTE | 2020-05-29 05:58 | NUR ---
SHIFT SUMMARY NO ACUTE CHANGES THIS SHIFT. GAVE AND EDUCATED PT ON INCENTIVE SPIROMENTER. PT STATES SHE SLEPT WELL T/O NIGHT. NO COMPLAINTS OF ANY KIND. PT IS LAYING IN BED WITH EYES CLOSED, EVEN AND UNLABORED RESPIRATIONS. BED IN LOWERED POSITION WITH CALL LIGHT AND PERSONAL ITEMS WITHIN REACH. NO APPARENT NEEDS OR DISTRESS AT THIS TIME, WILL CONTINUE TO MONITOR UNTIL REPORT GIVEN TO DAY RN.
[2020-05-29] MEDS ORDERED: IPRAT-ALBUT 0.5-3 ML (13:49)
[2020-05-29] MEDS ORDERED: LEVFLO500 PO (13:49)
[2020-05-29] MEDS ORDERED: MIRALAX17 G3 PO (13:50)
[2020-05-29] MEDS ORDERED: Prednisone10 MG PO (13:53)
--- NOTE | 2020-05-29 14:44 | NUR ---
DISCHARGED PT DISCHARGED TO HOME, TRANSPORTED VIA WC WITH . NO IV ACCESS. FAXED MEDICATIONS AT [facility]. PT AWARE TO SEE PCP WITHIN 2 WEEKS. PT PROVIDED EDUCATION PACKET/HANDOUT UPON DISCHARGE. PT VERBALIZED UNDERSTANDING. VSS
== END 2020-05-29 14:17 | disposition home or self-care (01) | DRG 190 ==
LOC: ER 09:48 → MEDS 09:49 → ER 15:13 → MEDS 15:13
PROVIDERS: Emergency Medicine; ADMIT Internal Medicine
DX: J44.1 Chronic obstructive pulmonary disease with (acute) exacerbation (principal); J18.9 Pneumonia, unspecified organism; J96.11 Chronic respiratory failure with hypoxia; Z99.81 Dependence on supplemental oxygen; J44.0 Chronic obstructive pulmonary disease with (acute) lower respiratory infection; Z87.891 Personal history of nicotine dependence; Z20.828 Contact with and (suspected) exposure to other viral communicable diseases; N18.30 Chronic kidney disease, stage 3 unspecified; I12.9 Hypertensive chronic kidney disease with stage 1 through stage 4 chronic kidney disease, or unspecified chronic kidney disease
CPT/HCPCS: 36415; 71045; 71260; 80048; 80053; 81003; 83605; 83880; 84484; 85025; 87040; 92526; 92610; 93005; 93010; 94640; 94664; 94667; 94760; 96365; 96366; 96367; 96372; 96375; 96376; 98960; 99285-25; A9270-GY; G0378; J1650; J1940; J1956; J2405; J2543; J2930; J7030; J7050; J7512; Q9967; U0003

== ENCOUNTER → 2020-06-10 | Outpatient (CLI) | payer MEDICARE, BC ==
[~2020-06-10] MED LIST changes: +ALPR.5 PO; +AMLODIPINE BESYL5 MG PO; +IPRAT-ALBUT 0.5-3 ML; +Klor-Con 1010 MEQ PO; +LEVFLO500 PO; +LOSARTAN POTAS100 M1 PO; +LYRICA100 MG PO; +MIRALAX17 G3 PO; +PANTOPRAZOLE SO40 M2 PO; +Prednisone10 MG PO; +SPIRIVA RESPIMAT4 G3 INH; +SPIRONOLACTONE25 MG PO; +SYNTHROID50 MC1 PO; +TIZA4 PO; +TORSE20 PO; +Vitamin D2000 UNIT PO; +WIXELA 500-501 EAC1 INH
[2020-06-10 12:24] LABS: BASOPHILS ABSOLUTE AUTO 0.05 K/mm3 (0.00-0.23); BASOPHILS PERCENT AUTO 0 % (0-2); EOSINOPHILS ABSOLUTE AUTO 0.08 K/mm3 (0.00-0.68); EOSINOPHILS PERCENT AUTO 1 % (0-6); Hematocrit 35.9 % (33.0-51.0); Hemoglobin 10.9 g/dL (11.5-16.0); IMMATURE GRAN PERCENT AUTO 1 % (0-1); LYMPHOCYTES ABSOLUTE AUTO 1.05 K/mm3 (0.84-5.20); LYMPHOCYTES PERCENT AUTO 9 % (21-46); MONOCYTES PERCENT AUTO 5 % (4-13); Mean Corpuscular HGB 26.4 pg (26.0-34.0); Mean Corpuscular HGB Conc 30.4 g/dL (31.5-36.5); Mean Corpuscular Volume 87 fL (80-100); Mean Platelet Volume 9.5 fL (9.1-12.4); NEUTROPHILS ABSOLUTE AUTO 9.59 K/mm3 (1.96-9.15); NEUTROPHILS PERCENT AUTO 84 % (41-73); Platelet Count 349 K/mm3 (150-400); RDW Coefficient Variation 18.8 % (11.7-14.2); Red Blood Cell Count 4.13 M/mm3 (3.80-5.20); White Blood Cell Count 11.47 K/mm3 (4.00-11.30)
[2020-06-10 12:36] LABS: Alanine Aminotransfer (ALT/SGP 38 U/L (12-78); Albumin, Blood 4.1 g/dL (3.4-5.0); Albumin/Globulin Ratio 1.1 (0.8-1.8); Alk Phos 56 U/L (40-126); Anion Gap 9 mmol/L (6-16); Aspartate Aminotrans (AST/SGOT 17 U/L (12-37); Bilirubin, Total 0.8 mg/dL (0.1-1.0); Blood Urea Nitrogen 29 mg/dL (8-24); Bun/Creatinine Ratio 23.2 (12.0-20.0); CO2, Blood 29 mmol/L (21-32); Calcium, Blood 9.6 mg/dL (8.5-10.1); Chloride, Blood 97 mmol/L (98-108); Creatinine, Blood 1.25 mg/dL (0.40-1.00); Globulin, Blood 3.6 g/dL (2.2-4.0); Glomerular Filtration Rate 42 (60-); Glucose, Blood 109 mg/dL (70-99); Potassium, Blood 4.9 mmol/L (3.5-5.5); Sodium, Blood 135 mmol/L (136-145); Total Protein, Blood 7.7 g/dL (6.4-8.2)
[2020-06-10 12:37] LABS: Troponin I <0.017 ng/mL (0.000-0.040)
== END | disposition home or self-care (01) ==
LOC: LAB EV 12:19 → LAB SHORT 12:19
PROVIDERS: Family Medicine
DX: R06.00 Dyspnea, unspecified (principal)
CPT/HCPCS: 80053; 83880; 84484; 85025

== ENCOUNTER → 2020-09-09 | Outpatient (CLI) | payer MEDICARE, BC ==
[~2020-09-09] MED LIST changes: +CLIMARA1 EACH; +CYMBALTA30 M1 PO; +EUTHYROX50 MCG PO; +HYDROCODONE-AC1 EAC7; +Prednisone10 MG; +TORSE20
[2020-09-10 09:34] LABS: Stool Occult Bld Immuno 1 Negative (NEGATIVE)
== END | disposition home or self-care (01) ==
LOC: LAB SHORT 12:53 → PLD 12:53
PROVIDERS: Nurse Practitioner Family
DX: D50.9 Iron deficiency anemia, unspecified (principal)
CPT/HCPCS: 82274

== ENCOUNTER 2020-09-22 08:03 | Day surgery (SDC) | payer MEDICARE, BC ==
[~2020-09-22] VITALS: Ht 177.8 cm; Wt 147.2 kg
[~2020-09-22 08:03] MED LIST changes: -CLIMARA1 EACH; -CYMBALTA30 M1 PO; -HYDROCODONE-AC1 EAC7; -Prednisone10 MG; -TORSE20
--- NOTE | 2020-09-22 08:37 | NUR ---
09/22/20 0837 TASHA GOOD ONE ATTEMPT IN RH BY CHRISTOPHER MISSED ONE SUCCESSFUL BY RN IN RH PT TOW
[2020-09-22] MEDS ORDERED: HYDROCODONE-AC1 EAC7 (08:42)
[2020-09-22] MEDS ORDERED: CLIMARA1 EACH (08:42)
[2021-02-09] MEDS ORDERED: CYMBALTA30 M1 PO (08:40)
[2021-02-09] MEDS ORDERED: POTA10T PO (08:40)
[2021-02-09] MEDS ORDERED: TORSE20 (08:41)
== END 2020-09-22 10:10 | disposition home or self-care (01) ==
LOC: ORSCSDS 08:03
PROVIDERS: Student in an Organized Health Care Education/Training Program
PROC: 0DB88ZX Excision of Small Intestine, Via Natural or Artificial Opening Endoscopic, Diagnostic (ICD-10-PCS; principal; 2020-09-22 09:15)
PROC: 0DB68ZX Excision of Stomach, Via Natural or Artificial Opening Endoscopic, Diagnostic (ICD-10-PCS; principal; 2020-09-22 09:15)
DX: R10.13 Epigastric pain (principal); J44.9 Chronic obstructive pulmonary disease, unspecified; I10 Essential (primary) hypertension; E03.9 Hypothyroidism, unspecified; D64.9 Anemia, unspecified; K44.9 Diaphragmatic hernia without obstruction or gangrene; Z99.81 Dependence on supplemental oxygen; K21.9 Gastro-esophageal reflux disease without esophagitis; Z87.891 Personal history of nicotine dependence; E66.01 Morbid (severe) obesity due to excess calories; Z68.42 Body mass index [BMI] 45.0-49.9, adult; Z79.899 Other long term (current) drug therapy
CPT/HCPCS: 88305; 88342; J2405; J2704; J7120

== ENCOUNTER → 2020-11-13 | Outpatient (CLI) | payer MEDICARE, BC ==
[~2020-11-13] MED LIST changes: +CLIMARA1 EACH; +HYDROCODONE-AC1 EAC7
== END | disposition home or self-care (01) ==
LOC: LAB SHORT 18:24
DX: N39.0 Urinary tract infection, site not specified (principal)
CPT/HCPCS: 87077; 87086; 87186

== ENCOUNTER → 2021-01-12 | Outpatient (CLI) | payer MEDICARE, BC ==
[~2021-01-12] MED LIST changes: +CYMBALTA30 M1 PO; +Prednisone10 MG; +TORSE20
[2021-01-12 10:17] LABS: Source, Urine Voided
[2021-01-12 13:15] LABS: Appearance, Urine Cloudy (Clear); Bilirubin, Urine Neg (Neg); Blood, Urine 1+ (Neg); Color, Urine Yellow (P-Yellow); Glucose Qualitative, Urine Neg (Neg); Ketones, Urine Neg (Neg); Leukocyte Esterase, Urine 2+ (Neg); Nitrite, Urine Neg (Neg); Protein, Urine Neg (Neg); Specific Gravity, Urine 1.015 (1.003-1.022); Urobilinogen, Urine NORM (Normal)
[2021-01-12 13:46] LABS: Bacteria Many /hpf; Red Blood Cells, Urine Rare /hpf (0-2); Squamous Epithelial Cells Mod /hpf (Few); White Blood Cells, Urine 50-100 /hpf (0-5)
== END | disposition home or self-care (01) ==
LOC: LAB SHORT 10:10 → LAB 10:10
PROVIDERS: Nurse Practitioner Family
DX: R30.0 Dysuria (principal)
CPT/HCPCS: 81001; 87077; 87086; 87186

== ENCOUNTER 2021-01-19 08:49 | Day surgery (SDC) | payer MEDICARE, BC ==
[~2021-01-19] VITALS: Ht 177.8 cm; Wt 146.1 kg
[~2021-01-19 08:49] MED LIST changes: -CYMBALTA30 M1 PO; -Prednisone10 MG; -TORSE20
[2021-01-19] MEDS ORDERED: Prednisone10 MG (09:31)
[2021-02-09] MEDS ORDERED: POTA10T PO (08:40)
[2021-02-09] MEDS ORDERED: CYMBALTA30 M1 PO (08:40)
[2021-02-09] MEDS ORDERED: TORSE20 (08:41)
== END 2021-01-19 11:42 | disposition home or self-care (01) ==
LOC: ORSCSDS 08:49
PROVIDERS: Student in an Organized Health Care Education/Training Program
PROC: 0DBH8ZX Excision of Cecum, Via Natural or Artificial Opening Endoscopic, Diagnostic (ICD-10-PCS; principal; 2021-01-19 10:00)
DX: D50.9 Iron deficiency anemia, unspecified (principal); D12.0 Benign neoplasm of cecum; I10 Essential (primary) hypertension; J44.9 Chronic obstructive pulmonary disease, unspecified; Z87.891 Personal history of nicotine dependence; E66.01 Morbid (severe) obesity due to excess calories; Z68.42 Body mass index [BMI] 45.0-49.9, adult; E03.9 Hypothyroidism, unspecified; K21.9 Gastro-esophageal reflux disease without esophagitis; Z79.899 Other long term (current) drug therapy
CPT/HCPCS: 88305; J2405; J2704

== ENCOUNTER 2021-02-17 10:34 | Day surgery (SDC) | payer MEDICARE, BC ==
[~2021-02-17] VITALS: Ht 177.8 cm; Wt 143.7 kg
[~2021-02-17 10:34] MED LIST changes: +CYMBALTA30 M1 PO; +Prednisone10 MG; +TORSE20
== END 2021-02-17 12:28 | disposition home or self-care (01) ==
LOC: ORSCSDS 10:34
PROVIDERS: Surgery
PROC: 0D758ZZ Dilation of Esophagus, Via Natural or Artificial Opening Endoscopic (ICD-10-PCS; principal; 2021-02-17 12:00)
DX: K44.9 Diaphragmatic hernia without obstruction or gangrene (principal); R13.10 Dysphagia, unspecified; K22.4 Dyskinesia of esophagus; K22.2 Esophageal obstruction; I10 Essential (primary) hypertension; J44.9 Chronic obstructive pulmonary disease, unspecified; Z99.81 Dependence on supplemental oxygen; N18.30 Chronic kidney disease, stage 3 unspecified; E03.9 Hypothyroidism, unspecified; F41.8 Other specified anxiety disorders; E66.01 Morbid (severe) obesity due to excess calories; Z68.42 Body mass index [BMI] 45.0-49.9, adult; Z79.899 Other long term (current) drug therapy
CPT/HCPCS: C1726; J2704

== ENCOUNTER 2021-03-05 10:08 | Day surgery (SDC) | payer MEDICARE, BC ==
--- NOTE | 2021-03-05 11:13 | NUR ---
1015 PATIETN ARRIVED AND BROUGHT BACK TO PROCEDURE ROOM. MONITOR APPLIED AND A SWET OF BASLINE VS OBTAINED. PATIENT WAS NOTED TO BE IN SINUS RHYTHM. 12 LEAD EKG WAS PERFORMED AND DR. BARRAZA CALLED TO THE BEDSIDE AND VERIFIED EKG. ESTELA/DCCV CANCELLED AND PATIENT WILL STAY ON CURRENT MEDICA[place] AND FOLLOW UP WITH AIDEE WARREN NP IN THE CARDIOLOGY OFFICE FOR FURTHER EVALUATION. PATIENT REDRESSED ADN DISCAHRGED HOME WITH .
== END 2021-03-05 11:35 | disposition home or self-care (01) ==
LOC: MHTC 10:08
DX: I48.91 Unspecified atrial fibrillation (principal); R06.02 Shortness of breath; R42 Dizziness and giddiness; R51.9 Headache, unspecified
CPT/HCPCS: 93005; 93010

== ENCOUNTER → 2021-04-09 | Outpatient (CLI) | payer MEDICARE, BC | END | disposition home or self-care (01) | LOC: LAB 10:15 → LAB SHORT 10:15 | DX: L97.418 Non-pressure chronic ulcer of right heel and midfoot with other specified severity (principal) | CPT/HCPCS: 87070; 87075; 87076; 87205 ==

== ENCOUNTER → 2021-06-02 | Outpatient (CLI) | payer MEDICARE, BC ==
[2021-06-02 16:28] LABS: Percent Saturation 4.5 % (15.0-50.0)
== END | disposition home or self-care (01) ==
LOC: LAB 13:43 → LAB SHORT 13:43
PROVIDERS: Internal Medicine Hematology & Oncology
DX: D50.9 Iron deficiency anemia, unspecified (principal); E53.8 Deficiency of other specified B group vitamins
CPT/HCPCS: 82607; 82728; 82746; 83540; 83550

== ENCOUNTER → 2021-07-14 | Outpatient (CLI) | payer MEDICARE, BC ==
[2021-07-14 19:15] LABS: Alanine Aminotransfer (ALT/SGP 26 U/L (12-78); Albumin, Blood 3.4 g/dL (3.4-5.0); Albumin/Globulin Ratio 1.1 (0.8-1.8); Alk Phos 76 U/L (50-136); Anion Gap 8 mmol/L (6-16); Aspartate Aminotrans (AST/SGOT 23 U/L (12-37); Bilirubin, Total 0.4 mg/dL (0.1-1.0); Blood Urea Nitrogen 21 mg/dL (8-24); Bun/Creatinine Ratio 27.2 (12.0-20.0); CO2, Blood 29 mmol/L (21-32); Calcium, Blood 9.2 mg/dL (8.5-10.1); Chloride, Blood 104 mmol/L (98-108); Creatinine, Blood 0.77 mg/dL (0.40-1.00); Ferritin, Serum 49 ng/mL (8-252); Globulin, Blood 3.1 g/dL (2.2-4.0); Glomerular Filtration Rate >60 (60-); Glucose, Blood 123 mg/dL (70-99); Iron Serum 56 ug/dL (50-170); Percent Saturation 14.2 % (15.0-50.0); Phosphorus, Blood 3.4 mg/dL (2.5-4.9); Potassium, Blood 4.6 mmol/L (3.5-5.5); Sodium, Blood 141 mmol/L (136-145); Total Iron Binding Capacity 394 ug/dL (250-450); Total Protein, Blood 6.5 g/dL (6.4-8.2)
== END ==
LOC: LAB 11:22 → LAB SHORT 11:22
PROVIDERS: Internal Medicine Hematology & Oncology
DX: D50.9 Iron deficiency anemia, unspecified (principal)
CPT/HCPCS: 80053; 82728; 83540; 83550; 84100

== ENCOUNTER → 2021-09-08 | Outpatient (CLI) | payer MEDICARE, BC | END | disposition home or self-care (01) | LOC: LAB SHORT 11:10 → LAB 11:10 | DX: J18.9 Pneumonia, unspecified organism (principal) | CPT/HCPCS: 87070; 87077; 87185; 87205 ==

== ENCOUNTER 2021-11-04 06:05 | Day surgery (SDC) | payer MEDICARE, BC ==
[~2021-11-04] VITALS: Ht 177.8 cm; Wt 139.0 kg
[~2021-11-04 06:05] MED LIST changes: -HYDROCODONE-AC1 EAC7; +HYDROCODONE-AC1 EAC7 PO; -Prednisone10 MG; -VITAMIN B122500 MCG PO; +VITAMIN B125000 MC1 PO
== END 2021-11-04 10:05 | disposition home or self-care (01) ==
LOC: MHTC 06:05
DX: R07.89 Other chest pain (principal); I48.0 Paroxysmal atrial fibrillation; E03.9 Hypothyroidism, unspecified; J44.9 Chronic obstructive pulmonary disease, unspecified; I13.0 Hypertensive heart and chronic kidney disease with heart failure and stage 1 through stage 4 chronic kidney disease, or unspecified chronic kidney disease; N18.30 Chronic kidney disease, stage 3 unspecified; I50.9 Heart failure, unspecified; K21.9 Gastro-esophageal reflux disease without esophagitis; M10.9 Gout, unspecified; E66.01 Morbid (severe) obesity due to excess calories; I35.0 Nonrheumatic aortic (valve) stenosis; E88.81 Metabolic syndrome and other insulin resistance; D53.9 Nutritional anemia, unspecified; Z68.41 Body mass index [BMI] 40.0-44.9, adult
CPT/HCPCS: 76937; 93454; 99152; 99153; C1769; C1887; C1894; J1160; J1644; J2250; J3010; J7030; J7050; Q9967

== ENCOUNTER → 2021-12-17 | Outpatient (CLI) | payer MEDICARE, BC | END | disposition home or self-care (01) | LOC: LAB 11:45 → LAB SHORT 11:45 | DX: J44.9 Chronic obstructive pulmonary disease, unspecified (principal) | CPT/HCPCS: 87070; 87077; 87185; 87186; 87205 ==

== ENCOUNTER → 2021-12-22 | Outpatient (CLI) | payer MEDICARE, BC | END | disposition home or self-care (01) | LOC: LAB SHORT 08:35 → LAB 08:35 → LAB SHORT 12:52 | DX: J44.9 Chronic obstructive pulmonary disease, unspecified (principal) | CPT/HCPCS: 36415; 87070; 87077; 87185; 87186; 87205 ==

== ENCOUNTER → 2021-12-24 | Outpatient (CLI) | payer MEDICARE, BC | END | disposition home or self-care (01) | LOC: LAB 09:00 → LAB SHORT 09:00 | DX: J44.9 Chronic obstructive pulmonary disease, unspecified (principal) | CPT/HCPCS: 87070; 87077; 87185; 87186; 87205 ==

== ENCOUNTER → 2022-01-04 | Outpatient (CLI) | payer MEDICARE, BC | END | disposition home or self-care (01) | LOC: LAB SHORT 09:50 → LAB 09:50 → LAB SHORT 14:36 | DX: J45.52 Severe persistent asthma with status asthmaticus (principal) | CPT/HCPCS: 87015; 87116; 87206 ==

== ENCOUNTER → 2022-01-05 | Outpatient (CLI) | payer MEDICARE, BC | END | disposition home or self-care (01) | LOC: LAB 14:30 → LAB SHORT 14:30 | DX: J45.52 Severe persistent asthma with status asthmaticus (principal) | CPT/HCPCS: 87015; 87116; 87206 ==

== ENCOUNTER → 2022-01-06 | Outpatient (CLI) | payer MEDICARE, BC | END | disposition home or self-care (01) | LOC: LAB SHORT 09:05 → LAB 09:05 | DX: J45.52 Severe persistent asthma with status asthmaticus (principal) | CPT/HCPCS: 87015; 87116; 87206 ==

== ENCOUNTER → 2022-01-11 | Outpatient (CLI) | payer MEDICARE, BC | END | disposition home or self-care (01) | LOC: LAB 17:45 → LAB SHORT 17:45 | DX: N39.0 Urinary tract infection, site not specified (principal) | CPT/HCPCS: 87077; 87086; 87186 ==

== ENCOUNTER → 2022-02-02 | Outpatient (CLI) | payer MEDICARE, BC ==
[2022-02-02 16:26] LABS: BASOPHILS ABSOLUTE AUTO 0.01 K/mm3 (0.00-0.23); BASOPHILS PERCENT AUTO 0 % (0-2); EOSINOPHILS PERCENT AUTO 0 % (0-6); Hematocrit 34.5 % (33.0-51.0); Hemoglobin 10.2 g/dL (11.5-16.0); IMMATURE GRAN ABSOLUTE AUTO 0.03 K/mm3 (0.00-0.10); IMMATURE GRAN PERCENT AUTO 0 % (0-1); LYMPHOCYTES ABSOLUTE AUTO 1.21 K/mm3 (0.84-5.20); LYMPHOCYTES PERCENT AUTO 13 % (21-46); MONOCYTES PERCENT AUTO 6 % (4-13); Mean Corpuscular HGB 26.8 pg (26.0-34.0); Mean Corpuscular HGB Conc 29.6 g/dL (31.5-36.5); Mean Corpuscular Volume 91 fL (80-100); NEUTROPHILS ABSOLUTE AUTO 7.58 K/mm3 (1.96-9.15); NEUTROPHILS PERCENT AUTO 80 % (41-73); Platelet Count 243 K/mm3 (150-400); RDW Coefficient Variation 18.5 % (11.7-14.2); RDW Standard Deviation 62.1 fL (35.1-46.3); White Blood Cell Count 9.43 K/mm3 (4.00-11.30)
[2022-02-02 16:28] LABS: Bun/Creatinine Ratio 14.5 (12.0-20.0); Calcium, Blood 9.3 mg/dL (8.5-10.1); Creatinine, Blood 1.17 mg/dL (0.40-1.00); Potassium, Blood 3.9 mmol/L (3.5-5.5)
== END | disposition home or self-care (01) ==
LOC: LAB SHORT 16:19 → LAB 16:19
PROVIDERS: Physician Assistant Medical
DX: N10 Acute pyelonephritis (principal); R50.9 Fever, unspecified
CPT/HCPCS: 80048; 85025; 87077; 87086; 87186

== ENCOUNTER → 2022-03-11 | Outpatient (CLI) | payer MEDICARE, BC ==
[2022-03-11 19:55] LABS: Albumin, Blood 3.3 g/dL (3.4-5.0); Bilirubin, Total 0.5 mg/dL (0.1-1.0); Bun/Creatinine Ratio 21.5 (12.0-20.0); Calcium, Blood 8.8 mg/dL (8.5-10.1); Creatinine, Blood 0.74 mg/dL (0.40-1.00); Globulin, Blood 3.4 g/dL (2.2-4.0); Percent Saturation 6.5 % (15.0-50.0); Phosphorus, Blood 3.4 mg/dL (2.5-4.9); Potassium, Blood 4.7 mmol/L (3.5-5.5); Total Protein, Blood 6.7 g/dL (6.4-8.2)
== END | disposition home or self-care (01) ==
LOC: LAB SHORT 11:12 → LAB 11:12
PROVIDERS: Internal Medicine Hematology & Oncology
DX: D50.9 Iron deficiency anemia, unspecified (principal)
CPT/HCPCS: 80053; 82728; 83540; 83550; 84100

== ENCOUNTER → 2022-04-15 | Outpatient (CLI) | payer MEDICARE, BC | END | disposition home or self-care (01) | LOC: LAB SHORT 14:20 → LAB 14:20 | DX: S91.101D Unspecified open wound of right great toe without damage to nail, subsequent encounter (principal) | CPT/HCPCS: 87070; 87075; 87076; 87077; 87147; 87185; 87186; 87205 ==

== ENCOUNTER → 2022-05-14 | Outpatient (CLI) | payer MEDICARE, BC | END | disposition home or self-care (01) | LOC: LAB SHORT 13:41 → LAB 13:41 | DX: N39.0 Urinary tract infection, site not specified (principal) | CPT/HCPCS: 87077; 87086; 87186 ==

== ENCOUNTER → 2022-06-01 | Outpatient (CLI) | payer MEDICARE, BC ==
[2022-06-01 15:23] LABS: Source, Urine Clean Catch
[2022-06-01 18:13] LABS: Appearance, Urine Cloudy (Clear); Bilirubin, Urine Neg (Neg); Blood, Urine 3+ (Neg); Glucose Qualitative, Urine Neg (Neg); Ketones, Urine Neg (Neg); Leukocyte Esterase, Urine 3+ (Neg); Nitrite, Urine Neg (Neg); Protein, Urine 2+ (Neg); Urobilinogen, Urine NORM (Normal)
[2022-06-01 18:20] LABS: Color, Urine Pale Yellow (P-Yellow)
[2022-06-01 18:22] LABS: Bacteria Few /hpf; Squamous Epithelial Cells Mod /hpf (Few); White Blood Cells, Urine 50-100 /hpf (0-5)
[2022-06-01 18:23] LABS: Renal Epithelial Mod /hpf (0-Rare); Transitional Epithelial Cells Rare /hpf (0-Rare)
== END ==
LOC: LAB SHORT 15:22 → LAB 15:22
PROVIDERS: Nurse Practitioner Family
DX: N39.0 Urinary tract infection, site not specified (principal)
CPT/HCPCS: 81001; 87077; 87086; 87186

== ENCOUNTER → 2022-08-11 | Outpatient (CLI) | payer MEDICARE, BC | END | disposition home or self-care (01) | LOC: LAB SHORT 11:30 → LAB 11:30 | DX: L97.519 Non-pressure chronic ulcer of other part of right foot with unspecified severity (principal) | CPT/HCPCS: 87070; 87075; 87077; 87147; 87186; 87205 ==

== ENCOUNTER 2023-05-19 05:56 | Day surgery (SDC) | payer MEDICARE, BC ==
[2023-05-19] VITALS (10 sets, daily range): BP systolic 114–151; BP diastolic 53–97
[~2023-05-19] VITALS: Ht 177.8 cm; Wt 124.0 kg
[~2023-05-19 05:56] MED LIST changes: +1/2 NS 250ml250 ML; +CRANBERRY PO; +ELIQUIS5 M2 PO; +FASENRA30 MG/1 ML SC; +IPRAT-ALBUT 0.5-3 ML INH; +K-Dur10 MEQ PO; +METO25ER PO; +MONUROL3 GM PO; +PROBIOTIC PO; +VENL150ER PO
--- NOTE | 2023-05-19 08:00 | NUR ---
PT BACK TO RECOCVERY FROM PROCEDURE. PT ALERT AND ORIENTED. PT DRINKING COFFEE SITTING UP AND READING. PT IS 87% ON RA. PT PLACED ON 2L O2, NC. TR BAND TO R WRIST. NO SWELLING OR BLEEDING NOTED.
--- NOTE | 2023-05-19 08:55 | NUR ---
PT AMBULATES TO BR AND BACK TO RECLINER.
--- NOTE | 2023-05-19 09:10 | NUR ---
TR BAND FULLY DEFLATED. NO BLEEDING. PT SITTING UP AND READING. VSS.
--- NOTE | 2023-05-19 10:15 | NUR ---
PT DRESSED, R RADIAL SITE, STABLE, NO BLEEDING OR HEMATOMA. PT VERBALIZE D/C INSTRUCTIONS. TR BAND REMOVED AND DOT CLOTH DRESSING PLACED. IV D/C CATHETER INTACT. PRESSURE DRESSING APPLIED. PT WHEELED OUT TO RIDE.
== END 2023-05-19 10:32 | disposition home or self-care (01) ==
LOC: MHTC 05:56
DX: I35.0 Nonrheumatic aortic (valve) stenosis (principal); I48.0 Paroxysmal atrial fibrillation; R06.02 Shortness of breath; R07.9 Chest pain, unspecified; E03.9 Hypothyroidism, unspecified; D50.9 Iron deficiency anemia, unspecified
CPT/HCPCS: 76937; 93454; 99152; 99153; C1769; C1894; J1644; J2250; J3010; J7030; J7050; Q9967

== ENCOUNTER → 2024-01-06 | Outpatient (CLI) | payer MEDICARE, BC ==
[2024-01-06 15:47] LABS: Percent Saturation 22.1 % (15.0-50.0)
== END ==
LOC: LAB EV 13:20 → LAB SHORT 13:20
PROVIDERS: Internal Medicine Hematology & Oncology
DX: E61.1 Iron deficiency (principal)
CPT/HCPCS: 82728; 83540; 83550

== ENCOUNTER 2024-03-27 09:56 | Day surgery (SDC) | payer MEDICARE, BC ==
[~2024-03-27] VITALS: Ht 177.8 cm; Wt 124.6 kg
[2024-03-27] VITALS (9 sets, daily range): BP systolic 116–139; BP diastolic 54–98
[2024-03-27] MEDS ORDERED: Lactated Ringer's 1,000 ML IV SCH (10:20)
[2024-03-27] MEDS ORDERED: CeFAZolin Sodium 3,000 MG in NS 100 ML IV SCH (10:30)
--- NOTE | 2024-03-27 11:22 | NUR ---
History, Chart, Medications and Allergies reviewed before start of procedure. Pre-Op teaching done. Pt verbalizes understanding. Ambulatory in Day Surgery WITH STEADY GAIT. PT GLASSES REMOVED AND PLACED IN PACU.
--- NOTE | 2024-03-27 13:05 | NUR ---
PT RESTING COMFORTABLY. DENIES NEEDS AT THIS TIME.
--- NOTE | 2024-03-27 14:27 | NUR ---
PT RESTING QUIETLY. DENIES NEEDS AT THIS TIME.
[2024-03-27] MEDS ORDERED: Bupivacaine 0.5% HCl 5 MG/ML 30MLVIAL ONE (14:35)
[2024-03-27] MEDS ORDERED: FentaNYL Citrate 50 MCG/ML 2 ML Injection ONE (14:37)
[2024-03-27] MEDS ORDERED: Midazolam HCl 1MG / ML 2ML Vial ONE (14:37)
[2024-03-27] MEDS ORDERED: Lidocaine HCl 2% 20 ML MDV ONE (14:53)
[2024-03-27] MEDS ORDERED: Ondansetron HCl 2 MG / ML 2ML Vial ONE (15:04)
[2024-03-27] MEDS ORDERED: Dexamethasone Sod Phos 10 MG/ML 1ML VIAL ONE (15:08)
[2024-03-27] MEDS ORDERED: HYDROcodone 5-APAP 325 TAB PO PRN (15:30)
--- NOTE | 2024-03-27 16:00 | NUR ---
1538 REPORT RECEIVED FROM DENISE TRAN. VSS. PT ON RA. PT A&0X4. PT ABLE TO REPOSITION SELF IN BED. PT REQUESTING PO FOOD AND FLUIDS AND TOLERATING THEM WELL. PT REPORTS 4/10 ACHING PAIN TO RIGHT WRIST. PT DENIES NAUSEA OR OTHER DISCOMFORTS. PT HAS JUAN WRAP TO RIGHT WRIST THAT IS C/D/I WITHOUT DRAINAGE, REDNESS, OR SWELLING. PT HAS BRISK CAP REFILL <3 SECS AND CAN WIGGLE FINGERS FREELY ON OPERATIVE SIDE.
--- NOTE | 2024-03-27 16:08 | NUR ---
Patient up to Ambulate independently. Gait steady. VSS AND CONSISTENT WITH PT BASELINE. PT HAS NO COMPLAINTS AND VERBALIZES READINESS TO GO HOME. Discharge instructions reviewed with patient. Patient verbalizes understanding. Copy given to patient to take home. Dressing to procedure site clean, dry, intact with no visible drainage, swelling, erythema or bruising noted. PT HAS BRISK CAP REFILL AND FULL ROM TO OPERATIVE SIDE FINGERS. Patient States Post-Procedure ride home has been arranged. Discharged via wheelchair to private car for ride home. PT BELONGINGS RETURNED TO PT.
== END 2024-03-27 16:10 | disposition home or self-care (01) ==
LOC: ORSCMMR 09:56 → ORD 10:00 → ORSCMMR 11:00
PROVIDERS: Orthopaedic Surgery
PROC: 0LB50ZZ Excision of Right Lower Arm and Wrist Tendon, Open Approach (ICD-10-PCS; principal; 2024-03-27 11:00)
DX: M67.431 Ganglion, right wrist (principal); I12.9 Hypertensive chronic kidney disease with stage 1 through stage 4 chronic kidney disease, or unspecified chronic kidney disease; N18.30 Chronic kidney disease, stage 3 unspecified; E03.9 Hypothyroidism, unspecified; F41.9 Anxiety disorder, unspecified; F32.A Depression, unspecified; Z68.39 Body mass index [BMI] 39.0-39.9, adult; Z79.899 Other long term (current) drug therapy
CPT/HCPCS: A9270; J0690; J1100; J2250; J2405; J3010; J7120

== ENCOUNTER → 2024-05-10 | Outpatient (CLI) | payer MEDICARE, BC ==
[~2024-05-10] MED LIST changes: +ALBU90OI INH; +FLUT1DIS8 INH
[2024-05-10 19:55] LABS: BASOPHILS PERCENT AUTO 0 % (0-2); EOSINOPHILS PERCENT AUTO 0 % (0-6); Hematocrit 37.8 % (33.0-51.0); Hemoglobin 12.1 g/dL (11.5-16.0); IMMATURE GRAN ABSOLUTE AUTO 0.03 K/mm3 (0.00-0.10); IMMATURE GRAN PERCENT AUTO 0 % (0-1); LYMPHOCYTES ABSOLUTE AUTO 2.13 K/mm3 (0.84-5.20); LYMPHOCYTES PERCENT AUTO 32 % (21-46); MONOCYTES ABSOLUTE AUTO 0.64 K/mm3 (0.16-1.47); MONOCYTES PERCENT AUTO 10 % (4-13); Mean Corpuscular HGB 32.6 pg (26.0-34.0); Mean Corpuscular Volume 102 fL (80-100); Mean Platelet Volume 10.6 fL (9.1-12.4); NEUTROPHILS ABSOLUTE AUTO 3.95 K/mm3 (1.96-9.15); NEUTROPHILS PERCENT AUTO 59 % (41-73); Platelet Count 204 K/mm3 (150-400); RDW Coefficient Variation 13.5 % (11.7-14.2); RDW Standard Deviation 50.3 fL (35.1-46.3); Red Blood Cell Count 3.71 M/mm3 (3.80-5.20); White Blood Cell Count 6.75 K/mm3 (4.00-11.30)
== END ==
LOC: LAB SHORT 18:22 → LAB 18:22
PROVIDERS: Internal Medicine Hematology & Oncology
DX: I10 Essential (primary) hypertension (principal); D50.9 Iron deficiency anemia, unspecified; E53.8 Deficiency of other specified B group vitamins
CPT/HCPCS: 85025

== ENCOUNTER 2024-05-22 12:25 | Day surgery (SDC) | payer MEDICARE, BC ==
[~2024-05-22] VITALS: Ht 177.8 cm; Wt 127.6 kg
[~2024-05-22 12:25] MED LIST changes: +Balanced Salt Epinephrine Irrigation Solution 500 mL IR SCH; +Lidocaine HCl/Pf 1% 5 ML VIAL XX SCH; +Moxifloxacin HCL 0.5 MG/0.1 ML 0.4MLSYR RIGHTEYE SCH; +NS 500 ML IV ONE; +PHENYLEPHRINE\\TROPICAMIDE\\TETRACAINE OPHTHALMIC DILATING SOLN RIGHTEYE PRN; +Povidone-Iodine 450 DROP/30 ML Solution ONE; +Povidone-Iodine 450 DROP/30 ML Solution RIGHTEYE SCH; +Tetracaine HCl/Pf 0.5% Opth Soln 4 ml ONE
[2024-05-22] MEDS ORDERED: FASENRA PE30 MG/1 ML SQ (12:52)
[2024-05-22] MEDS ORDERED: WIXELA 100-501 EAC1 IH (12:54)
[2024-05-22] MEDS ORDERED: NS 500 ML IV ONE (13:03)
--- NOTE | 2024-05-22 13:04 | NUR ---
05/22/24 1304 Ashkan Ashford CALL LIGHT WITHIN REACH. TETRACAINE IN RIGHT EYE AT 1249 AND PLEDGETT IN AT 1250
[2024-05-22] MEDS ORDERED: Ipratropium/Albuterol SulF 2.5-0.5MG/3 ML Amp ONE (13:07)
[2024-05-22] MEDS ORDERED: Midazolam HCl 1MG / ML 2ML Vial ONE (13:10)
[2024-05-22] MEDS ORDERED: FentaNYL Citrate 50 MCG/ML 2 ML Injection ONE (13:10)
[2024-05-22 15:00] VITALS: BP 155/75
== END 2024-05-22 14:18 | disposition home or self-care (01) ==
LOC: ORSCSDS 12:25
PROVIDERS: Student in an Organized Health Care Education/Training Program
PROC: 08RJ3JZ Replacement of Right Lens with Synthetic Substitute, Percutaneous Approach (ICD-10-PCS; principal; 2024-05-22 13:45)
DX: H25.811 Combined forms of age-related cataract, right eye (principal); H04.123 Dry eye syndrome of bilateral lacrimal glands; I12.9 Hypertensive chronic kidney disease with stage 1 through stage 4 chronic kidney disease, or unspecified chronic kidney disease; N18.9 Chronic kidney disease, unspecified; I48.91 Unspecified atrial fibrillation; J44.9 Chronic obstructive pulmonary disease, unspecified; E03.9 Hypothyroidism, unspecified; Z87.891 Personal history of nicotine dependence; E66.9 Obesity, unspecified; Z68.41 Body mass index [BMI] 40.0-44.9, adult; Z79.899 Other long term (current) drug therapy
CPT/HCPCS: J2250; J3010; J7040; V2632

== ENCOUNTER 2024-05-29 12:17 | Day surgery (SDC) | payer MEDICARE, BC ==
[~2024-05-29] VITALS: Ht 177.8 cm; Wt 127.4 kg
[~2024-05-29 12:17] MED LIST changes: +FASENRA PE30 MG/1 ML SQ; +Moxifloxacin HCL 0.5 MG/0.1 ML 0.4MLSYR LEFTEYE SCH; -Moxifloxacin HCL 0.5 MG/0.1 ML 0.4MLSYR RIGHTEYE SCH; +PHENYLEPHRINE\\TROPICAMIDE\\TETRACAINE OPHTHALMIC DILATING SOLN LEFTEYE PRN; -PHENYLEPHRINE\\TROPICAMIDE\\TETRACAINE OPHTHALMIC DILATING SOLN RIGHTEYE PRN; -Povidone-Iodine 450 DROP/30 ML Solution RIGHTEYE SCH; +WIXELA 100-501 EAC1 IH
[2024-05-29] MEDS ORDERED: NS 500 ML IV ONE (12:45)
--- NOTE | 2024-05-29 12:45 | NUR ---
05/29/24 1245 Ashkan Ashford CALL LIGHT WITHIN REACH. TETRACAINE IN LEFT EYE AT 1240 AND PLEDGETT IN AT 1241
[2024-05-29] MEDS ORDERED: Midazolam HCl 1MG / ML 2ML Vial ONE (13:07)
[2024-05-29 13:37] VITALS: BP 133/77
== END 2024-05-29 13:52 | disposition home or self-care (01) ==
LOC: ORSCSDS 12:17
PROVIDERS: Student in an Organized Health Care Education/Training Program
PROC: 08RK3JZ Replacement of Left Lens with Synthetic Substitute, Percutaneous Approach (ICD-10-PCS; principal; 2024-05-29 13:45)
DX: H25.812 Combined forms of age-related cataract, left eye (principal); Z96.1 Presence of intraocular lens; I12.9 Hypertensive chronic kidney disease with stage 1 through stage 4 chronic kidney disease, or unspecified chronic kidney disease; N18.9 Chronic kidney disease, unspecified; J44.9 Chronic obstructive pulmonary disease, unspecified; E03.9 Hypothyroidism, unspecified; E66.01 Morbid (severe) obesity due to excess calories; Z68.41 Body mass index [BMI] 40.0-44.9, adult; I48.91 Unspecified atrial fibrillation; Z79.899 Other long term (current) drug therapy
CPT/HCPCS: J2250; J7040; V2632

== ENCOUNTER → 2024-07-10 | Outpatient (CLI) | payer MEDICARE, BC ==
[~2024-07-10] MED LIST changes: -Balanced Salt Epinephrine Irrigation Solution 500 mL IR SCH; -Lidocaine HCl/Pf 1% 5 ML VIAL XX SCH; -Moxifloxacin HCL 0.5 MG/0.1 ML 0.4MLSYR LEFTEYE SCH; -NS 500 ML IV ONE; -PHENYLEPHRINE\\TROPICAMIDE\\TETRACAINE OPHTHALMIC DILATING SOLN LEFTEYE PRN; -Povidone-Iodine 450 DROP/30 ML Solution ONE; -Tetracaine HCl/Pf 0.5% Opth Soln 4 ml ONE
[2024-07-10 21:30] LABS: Percent Saturation 18.5 % (15.0-50.0)
== END ==
LOC: LAB SHORT 17:00 → LAB 17:00
PROVIDERS: Internal Medicine Hematology & Oncology
DX: D50.9 Iron deficiency anemia, unspecified (principal)
CPT/HCPCS: 82728; 83540; 83550

== ENCOUNTER → 2024-08-09 | Outpatient (CLI) | payer MEDICARE, BC ==
[2024-08-09 08:39] LABS: Source, Urine Clean Catch
[2024-08-09 12:57] LABS: Appearance, Urine Clear (Clear); Bilirubin, Urine Neg (Neg); Blood, Urine 1+ (Neg); Color, Urine Yellow (P-Yellow); Glucose Qualitative, Urine Neg (Neg); Ketones, Urine Neg (Neg); Leukocyte Esterase, Urine 2+ (Neg); Nitrite, Urine Pos (Neg); Protein, Urine Neg (Neg); Specific Gravity, Urine 1.015 (1.003-1.022); Urobilinogen, Urine NORM (Normal)
[2024-08-09 13:20] LABS: Bacteria Mod /hpf; Squamous Epithelial Cells Few /hpf (Few)
[2024-08-09 13:41] LABS: Creatinine, Urine Random 69.9 mg/dL (27.00-270.00); Protein, Urine Random 6.6 mg/dL (0.0-11.9); Protein/Creat Ratio, Ur Random 0.1
== END ==
LOC: LAB SHORT 04:00 → LAB 04:00
PROVIDERS: Hospitalist
DX: I12.9 Hypertensive chronic kidney disease with stage 1 through stage 4 chronic kidney disease, or unspecified chronic kidney disease (principal); N18.31 Chronic kidney disease, stage 3a; D63.1 Anemia in chronic kidney disease
CPT/HCPCS: 81001; 82570; 84156; 87077; 87086; 87186

== ENCOUNTER 2024-10-11 08:30 | Day surgery (SDC) | payer MEDICARE, BC ==
[~2024-10-11] VITALS: Ht 170.2 cm; Wt 126.8 kg
[2024-10-11] VITALS (31 sets, daily range): BP systolic 89–156; BP diastolic 40–93
[~2024-10-11 08:30] MED LIST changes: +Acetaminophen 500 MG Tab PO SCH; +CeFAZolin Sodium 2,000 MG VIAL ONE; +CeFAZolin Sodium 2,000 MG in NS 100 ML IV SCH; +Chlorhexidine Mouth Care 15 ML UDC MT SCH; +FentaNYL Citrate 50 MCG/ML 2 ML Injection ONE; +Lactated Ringer's 1,000 ML IV SCH; +OxyCODONE HCL 10 MG TABCR PO SCH; +Ropivacaine 0.5% HCl/Pf 123.125 MG,EPINEPHrine HCL 0.25 MG,Ketorolac Tromethamine 15 MG... INFIL SCH; -TORSE20; +Tranexamic Acid 100 ML IV SCH; +propofoL 20 ML IV ONE
[2024-10-11] MEDS ORDERED: CeFAZolin Sodium 3,000 MG in NS 100 ML IV SCH ×2 (09:10→18:00)
[2024-10-11] MEDS ORDERED: Vancomycin HCL 1,000 MG in NS 250 ML IV SCH (09:20)
[2024-10-11] MEDS ORDERED: CeFAZolin Sodium 3,000 MG VIAL ONE (09:39)
[2024-10-11] MEDS ORDERED: Ipratropium/Albuterol SulF 2.5-0.5MG/3 ML Amp INH PRN (09:55)
[2024-10-11] MEDS ORDERED: Polyethylene Glycol 3350 17 gm PO PRN (09:55)
--- NOTE | 2024-10-11 09:55 | NUR ---
History, Chart, Medications and Allergies reviewed before start of procedure. PT WITH A WET COUGH WHICH SHE STATES IS NORMAL. UPPER AIRWAY CRACKLES BUT CLEARS. R LOWER LOBE WITH INSPIRATORY CRACKLES. Patient reports completing Chlorhexadine shower X2 prior to admission to hospital. Patient confirms NPO status and agrees with scheduled surgery. Pre-Op teaching done. Pt verbalizes understanding.
[2024-10-11] MEDS ORDERED: Tiotropium Bromide 2.5 MCG/ACT MIST INHAL (10 ACT/4 GM) INH SCH (10:00)
[2024-10-11] MEDS ORDERED: OxyCODONE HCL 5 MG TAB PO PRN ×2 (10:05)
[2024-10-11] MEDS ORDERED: Metoclopramide HCl 5MG / ML 2ML Vial IV PRN (10:05)
[2024-10-11] MEDS ORDERED: Promethazine HCl 25 MG Tab PO PRN (10:05)
[2024-10-11] MEDS ORDERED: Bisacodyl 10 MG Supp PR PRN (10:05)
[2024-10-11] MEDS ORDERED: DiphenhydrAMINE HCL 25 MG Cap PO PRN (10:10)
[2024-10-11] MEDS ORDERED: Ondansetron HCl 2 MG / ML 2ML Vial IV PRN (10:10)
[2024-10-11] MEDS ORDERED: FLU VACC TS2024-25(6MOS UP)/PF 45 MCG/0.5 ML SYRINGE IM SCH (10:10)
[2024-10-11] MEDS ORDERED: HYDROmorphone HCl/Pf 1MG SYR IV PRN (10:10)
[2024-10-11] MEDS ORDERED: HYDROmorphone HCl/Pf 1MG SYR ONE ×3 (10:15→12:45)
[2024-10-11] MEDS ORDERED: Lactated Ringer's 1,000 ML IV SCH (10:15)
[2024-10-11] MEDS ORDERED: Magnesium Hydroxide Conc 10 ML UDC PO PRN (10:15)
[2024-10-11] MEDS ORDERED: Phenylephrine HCl 100 MCG/ML-NS 10MLSYR (1MG/10ML) ONE (10:36)
[2024-10-11] MEDS ORDERED: Mometasone/Formoterol MDI 200/5 mcg 13 GM INH SCH (10:45)
[2024-10-11] MEDS ORDERED: Albuterol HFA200 ACT/6.7 GM INH INH PRN (10:45)
[2024-10-11] MEDS ORDERED: Sugammadex Sodium 200 MG/2ML SDV (100 MG/ML) ONE (10:47)
[2024-10-11] MEDS ORDERED: FASENRA SC SCH (10:50)
[2024-10-11] MEDS ORDERED: FentaNYL Citrate 50 MCG/ML 2 ML Injection ONE (12:29)
[2024-10-11] MEDS ORDERED: Lactated Ringer's 1,000 ML IV ONE (12:41)
[2024-10-11] MEDS ORDERED: Pregabalin 50 MG Capsule PO SCH (14:00)
--- NOTE | 2024-10-11 15:55 | NUR ---
PATIENT UP WORKING WITH THERAPY, VOIDED, TOLERATING PO INTAKE. REPORTS 3-4 FOR PAIN. AQUACEL AND JUAN WRAP IN PLACE, C/D/I. ICE PACK AND SCDS. IN CHAIR. POSSIBLE DC THIS AFTERNOON. SOFT SBP, 109/58, HR 75. DENIES DIZZINESS. SOB. 2L NC BASELINE, LUNGS SOUNDS DIM. CALL LIGHT IN REACH FAMILY IN ROOM. PATIENT DOES WANT TO GO HOME TODAY.
[2024-10-11] MEDS ORDERED: Acetaminophen 500 MG Tab PO SCH (16:00)
[2024-10-11] MEDS ORDERED: Pantoprazole Sodium 40 MG Tab PO SCH (16:30)
--- NOTE | 2024-10-11 17:12 | NUR ---
DISCHARGE PATIENT VITALS STABLE, DENIES N/V, PAIN IS 3/10, MEDICATED WITH TYLENOL. ALL DC INSTRUCTIONS READ AND SIGNED AND VERBALIZED UNDERSTANDING, IV TAKEN OUT. DAUGHTER IN ROOM ASSISTING WITH GETTING PATIENT DRESSED. ICE MACHINE PACKED UP. AND EXTRA AQUACELS IN DC PACKET WITH ADAM. PATIENT LEAVES @1715 VIA WHEEL CHAIR.
[2024-10-11] MEDS ORDERED: Ketorolac Tromethamine 15mg Vial IV SCH (18:00)
[2024-10-11] MEDS ORDERED: Losartan Potassium 50 MG Tab PO SCH (21:00)
[2024-10-11] MEDS ORDERED: Docusate Sodium 100 MG Cap PO SCH (21:00)
[2024-10-11] MEDS ORDERED: AmLODIPine Besylate 5 MG Tab PO SCH (21:00)
[2024-10-11] MEDS ORDERED: Lactobacil 2-S.Thermo-Bifido 1 1 Cap PO SCH (21:00)
[2024-10-11] MEDS ORDERED: Calcium/Vit D 600 mg-400 Unit Tab PO SCH (21:00)
[2024-10-12] MEDS ORDERED: Levothyroxine Sodium 0.05 MG Tab PO SCH (06:00)
[2024-10-12] MEDS ORDERED: Apixaban 5 MG Tab PO SCH (09:00)
[2024-10-12] MEDS ORDERED: Metoprolol Succinate 50 MG TABCR PO SCH (09:00)
[2024-10-12] MEDS ORDERED: Torsemide 20 MG TAB PO SCH (09:00)
[2024-10-12] MEDS ORDERED: Allopurinol 300 MG Tab PO SCH (09:00)
[2024-10-12] MEDS ORDERED: Venlafaxine HCl 75 MG CapCR PO SCH (09:00)
[2024-10-12] MEDS ORDERED: Potassium Chloride 10 Meq Tablet SA PO SCH (09:00)
[2024-10-12] MEDS ORDERED: Cyanocobalamin 500 MCG Tab PO SCH (09:00)
== END 2024-10-11 17:15 | disposition home or self-care (01) ==
LOC: ORSCMMR 08:30 → ORD 10:00 → ORSCMMR 13:36 → SURS 13:36 → ORSCMMR 17:15
PROVIDERS: Orthopaedic Surgery
PROC: 0SRC0J9 Replacement of Right Knee Joint with Synthetic Substitute, Cemented, Open Approach (ICD-10-PCS; principal; 2024-10-11 10:00)
PROC: 8E0Y0CZ Robotic Assisted Procedure of Lower Extremity, Open Approach (ICD-10-PCS; principal; 2024-10-11 10:00)
DX: M17.11 Unilateral primary osteoarthritis, right knee (principal); J45.909 Unspecified asthma, uncomplicated; J44.9 Chronic obstructive pulmonary disease, unspecified; I12.9 Hypertensive chronic kidney disease with stage 1 through stage 4 chronic kidney disease, or unspecified chronic kidney disease; N18.9 Chronic kidney disease, unspecified; E66.01 Morbid (severe) obesity due to excess calories; Z68.41 Body mass index [BMI] 40.0-44.9, adult; Z79.01 Long term (current) use of anticoagulants; Z79.899 Other long term (current) drug therapy
CPT/HCPCS: 36415; 73560-RT; 86850; 86900; 86901; 97110; 97116; 97161; 97530; A9270; C1713; C1776; J0171; J0690; J0735; J1171; J1885; J2371; J2704; J2795; J3010; J3370; J7050; J7120

== ENCOUNTER → 2025-01-01 | Outpatient (CLI) | payer MEDICARE, BC ==
[~2025-01-01] MED LIST changes: -Acetaminophen 500 MG Tab PO SCH; -CeFAZolin Sodium 2,000 MG VIAL ONE; -CeFAZolin Sodium 2,000 MG in NS 100 ML IV SCH; -Chlorhexidine Mouth Care 15 ML UDC MT SCH; -FentaNYL Citrate 50 MCG/ML 2 ML Injection ONE; -Lactated Ringer's 1,000 ML IV SCH; -OxyCODONE HCL 10 MG TABCR PO SCH; -Ropivacaine 0.5% HCl/Pf 123.125 MG,EPINEPHrine HCL 0.25 MG,Ketorolac Tromethamine 15 MG... INFIL SCH; -Tranexamic Acid 100 ML IV SCH; -propofoL 20 ML IV ONE
[2025-01-01 15:05] LABS: BASOPHILS ABSOLUTE AUTO 0.01 K/mm3 (0.00-0.23); BASOPHILS PERCENT AUTO 0 % (0-2); EOSINOPHILS PERCENT AUTO 0 % (0-6); Hematocrit 35.8 % (33.0-51.0); Hemoglobin 10.6 g/dL (11.5-16.0); IMMATURE GRAN ABSOLUTE AUTO 0.04 K/mm3 (0.00-0.10); IMMATURE GRAN PERCENT AUTO 0 % (0-1); LYMPHOCYTES ABSOLUTE AUTO 1.77 K/mm3 (0.84-5.20); LYMPHOCYTES PERCENT AUTO 19 % (21-46); MONOCYTES ABSOLUTE AUTO 0.54 K/mm3 (0.16-1.47); MONOCYTES PERCENT AUTO 6 % (4-13); Mean Corpuscular HGB 27.7 pg (26.0-34.0); Mean Corpuscular HGB Conc 29.6 g/dL (31.5-36.5); Mean Corpuscular Volume 94 fL (80-100); Mean Platelet Volume 10.4 fL (9.1-12.4); NEUTROPHILS ABSOLUTE AUTO 6.91 K/mm3 (1.96-9.15); NEUTROPHILS PERCENT AUTO 75 % (41-73); Platelet Count 256 K/mm3 (150-400); RDW Coefficient Variation 16.2 % (11.7-14.2); RDW Standard Deviation 55.5 fL (35.1-46.3); Red Blood Cell Count 3.82 M/mm3 (3.80-5.20); White Blood Cell Count 9.27 K/mm3 (4.00-11.30)
[2025-01-01 15:54] LABS: Percent Saturation 6.4 % (15.0-50.0)
== END ==
LOC: LAB 13:43 → LAB SHORT 13:43
PROVIDERS: Internal Medicine Hematology & Oncology
DX: E61.1 Iron deficiency (principal)
CPT/HCPCS: 82728; 83540; 83550; 85025

== ENCOUNTER → 2025-02-13 | Outpatient (CLI) | payer MEDICARE, BC ==
[2025-02-13 16:52] LABS: BASOPHILS ABSOLUTE AUTO 0.01 K/mm3 (0.00-0.23); BASOPHILS PERCENT AUTO 0 % (0-2); EOSINOPHILS ABSOLUTE AUTO 0.00 K/mm3 (0.00-0.68); EOSINOPHILS PERCENT AUTO 0 % (0-6); Hematocrit 35.2 % (33.0-51.0); Hemoglobin 10.6 g/dL (11.5-16.0); IMMATURE GRAN ABSOLUTE AUTO 0.02 K/mm3 (0.00-0.10); IMMATURE GRAN PERCENT AUTO 0 % (0-1); LYMPHOCYTES ABSOLUTE AUTO 1.49 K/mm3 (0.84-5.20); LYMPHOCYTES PERCENT AUTO 16 % (21-46); MONOCYTES ABSOLUTE AUTO 0.78 K/mm3 (0.16-1.47); MONOCYTES PERCENT AUTO 8 % (4-13); Mean Corpuscular HGB Conc 30.1 g/dL (31.5-36.5); Mean Corpuscular Volume 98 fL (80-100); NEUTROPHILS ABSOLUTE AUTO 7.10 K/mm3 (1.96-9.15); NEUTROPHILS PERCENT AUTO 76 % (41-73); NRBC ABSOLUTE 0.00 K/mm3 (0.00-0.02); NRBC Auto 0.0 /100 WBC (0.0-0.2); Platelet Count 315 K/mm3 (150-400); RDW Coefficient Variation 20.8 % (11.7-14.2); RDW Standard Deviation 75.2 fL (35.1-46.3)
[2025-02-13 17:32] LABS: Ferritin, Serum 149.0 ng/mL (8-252); Total Iron Binding Capacity 271.0 ug/dL (250-450)
== END | disposition home or self-care (01) ==
LOC: LAB 12:38 → LAB SHORT 12:38 → EDSTATUS 16:35
PROVIDERS: Internal Medicine Hematology & Oncology
DX: D50.9 Iron deficiency anemia, unspecified (principal)
CPT/HCPCS: 82728; 83540; 83550; 85025

== ENCOUNTER → 2025-04-16 | Outpatient (CLI) | payer MEDICARE, BC ==
[~2025-04-16] MED LIST changes: +ASCO500 PO; +AZO D-MANNOSE500 M1 PO; +LEVO-T75 MC1 PO; +Loratadine10 MG PO; +MAGNESIUM250 MG PO; +Tambocor100 MG PO; +VITAMIN B12500 MCG PO; -VITAMIN B125000 MC1 PO
[2025-04-16 19:38] LABS: Ferritin, Serum 78.0 ng/mL (8-252); Total Iron Binding Capacity 355.0 ug/dL (250-450)
== END ==
LOC: LAB SHORT 17:10 → LAB 17:10
PROVIDERS: Internal Medicine Hematology & Oncology
DX: D50.9 Iron deficiency anemia, unspecified (principal)
CPT/HCPCS: 82728; 83540; 83550

== ENCOUNTER → 2025-06-18 | Outpatient (CLI) | payer MEDICARE, BC ==
[2025-06-18 16:36] LABS: BASOPHILS ABSOLUTE AUTO 0.02 K/mm3 (0.00-0.23); BASOPHILS PERCENT AUTO 0 % (0-2); EOSINOPHILS ABSOLUTE AUTO 0.00 K/mm3 (0.00-0.68); EOSINOPHILS PERCENT AUTO 0 % (0-6); Hematocrit 39.3 % (33.0-51.0); Hemoglobin 12.4 g/dL (11.5-16.0); IMMATURE GRAN ABSOLUTE AUTO 0.04 K/mm3 (0.00-0.10); IMMATURE GRAN PERCENT AUTO 0 % (0-1); LYMPHOCYTES ABSOLUTE AUTO 1.66 K/mm3 (0.84-5.20); LYMPHOCYTES PERCENT AUTO 17 % (21-46); MONOCYTES ABSOLUTE AUTO 0.73 K/mm3 (0.16-1.47); MONOCYTES PERCENT AUTO 7 % (4-13); Mean Corpuscular HGB Conc 31.6 g/dL (31.5-36.5); Mean Corpuscular Volume 100 fL (80-100); NEUTROPHILS ABSOLUTE AUTO 7.59 K/mm3 (1.96-9.15); NEUTROPHILS PERCENT AUTO 76 % (41-73); NRBC ABSOLUTE 0.00 K/mm3 (0.00-0.02); NRBC Auto 0.0 /100 WBC (0.0-0.2); Platelet Count 242 K/mm3 (150-400); RDW Coefficient Variation 15.9 % (11.7-14.2); RDW Standard Deviation 58.6 fL (35.1-46.3)
[2025-06-18 19:43] LABS: Ferritin, Serum 21.0 ng/mL (8-252); Total Iron Binding Capacity 399.0 ug/dL (250-450)
== END ==
LOC: LAB SHORT 15:41 → LAB 15:41
PROVIDERS: Internal Medicine Hematology & Oncology
DX: D50.9 Iron deficiency anemia, unspecified (principal)
CPT/HCPCS: 82728; 83540; 83550; 85025